=== PATIENT | male | born 1955 | race Caucasian/White ===

== ENCOUNTER 2016-09-19 10:46 | Day surgery (SDC) | payer BC ==
[2016-09-17 13:27] VITALS: BMI 31.1
[~2016-09-19 10:46] MED LIST: LACTATED RINGERS 1,000 ML IV SCH
[2016-09-19 11:13] VITALS: RESP 16; TEMP 96
[2016-09-19] MEDS ORDERED: LIDOCAINE 1% 20 ML VIAL (10MG/ML) FOR IV START INTRADERMA ONE (11:23)
[2016-09-19] MEDS ORDERED: PROPOFOL 10 MG/ML 20 ML VIAL IV ONE (11:36)
[2016-09-19] MEDS ORDERED: LIDOCAINE 1% INJ 10MG/ML (20 ML MDV) ONE (11:36)
[2016-09-19] MEDS ORDERED: MIDAZOLAM 2 MG/2 ML VIAL ONE (11:36)
--- NOTE | 2016-09-19 12:09 | P.PCN ---
Date of Procedure: 09/19/16 Procedure(s) Performed: Procedure: Total colonoscopy. Preoperative diagnosis: Screening for neoplasia. Postoperative diagnosis: Diverticulosis with no evidence of acute diverticulitis , strictures, polyps or cancer. Preparation: HalfLytely prep. Sedation: Was provided by anesthesia. Brief clinical history: The patient is a 60-year-old male who is referred for this evaluation for screening for neoplasia. His first exam was at age 48 and he believes he had a tiny polyp removed at that time. He has no abdominal complaints, bleeding or anemia. No family history of colon cancer. Procedure: With the patient on his left lateral decubitus position and after informed consent and adequate sedation, the perianal area was inspected and it did not show any fissures or fistulas. There were no masses felt on digital rectal examination. The Olympus CFQ 160L video colonoscope was then inserted in the rectum in the usual fashion and advanced to the cecum. The mucosa appeared healthy. No polyps or tumors were seen. There were multiple diverticular orifices noted scattered mostly on the left side with occasional ones around the hepatic flexure and on the right side with no evidence of acute diverticulitis or strictures. I retroflexed the endoscope in the rectum before the endoscope was withdrawn. The patient tolerated the procedure well. Plan: The patient was reassured. Discussed dietary measures. He will follow up with you as planned and I recommended repeat exam in 10 years.
[2016-09-19 12:47] VITALS: BP 133/88; PULSE 80
== END 2016-09-19 12:55 | disposition home or self-care (01) ==
LOC: ORWHC2ENDO 10:46
DX: Z12.11 Encounter for screening for malignant neoplasm of colon (principal); K57.30 Diverticulosis of large intestine without perforation or abscess without bleeding; Z86.010 Personal history of colon polyps; E78.5 Hyperlipidemia, unspecified; Z88.8 Allergy status to other drugs, medicaments and biological substances
CPT/HCPCS: J2250; J2001; J2704; G0105; 45378

== ENCOUNTER 2016-10-16 08:56 | Emergency (ER) | payer BC ==
[2016-10-16 09:04] VITALS: BP 146/108; PULSE 101; RESP 20; TEMP 98
[2016-10-16] MEDS ORDERED: DIPH,PERTUS(ACELL)TETVAC-LF 0.5 ML VIAL IM ONE (10:46)
--- NOTE | 2016-10-16 11:05 | ED ---
General Adult HPI - General Chief complaint: Wound/Laceration Stated complaint: LACERATION LEFT FINGER Time Seen by Provider: 10/16/16 10:45 Source: patient, RN notes reviewed Mode of arrival: ambulatory Limitations: no limitations - History of Present Illness Initial comments: Patient is a 60-year-old male who presents emergency room today with chief complaint of an injury to the left hand. He does admit that he was using a cutting wheel when it caught on something came out of his hands hit the back of the left hand causing laceration at the second metacarpal. Patient states unsure of his tetanus status. He denies any other complaints or symptoms. Patient denies any recent fever, chills, shortness of breath, chest pain, back pain, abdominal pain, nausea or vomiting, numbness or tingling, dysuria or hematuria, constipation or diarrhea, headaches or visual changes, or any other complaints. - Related Data Home Medications Medication Instructions Recorded Confirmed Cider Vinegar [Apple Cider Vinegar] 600 mg PO DAILY 09/17/16 09/19/16 Multivit-Min/FA/Lycopen/Lutein 1 each PO DAILY 09/17/16 09/19/16 [Centrum Silver Men Tablet] Previous Rx's Medication Instructions Recorded Cephalexin [Keflex] 500 mg PO Q12HR 10 Days 10/16/16 Allergies Allergy/AdvReac Type Severity Reaction Status Date / Time Kawyjrx-Dam-Fmy Reductase AdvReac MUSCLE PAIN Verified 10/16/16 09:04 Inhibitor Review of Systems ROS Statement: Those systems with pertinent positive or pertinent negative responses have been documented in the HPI. ROS Other: All systems not noted in ROS Statement are negative. Past Medical History Additional Past Medical History / Comment(s): HX OF COLON POLYP History of Any Multi-Drug Resistant Organisms: None Reported Additional Past Surgical History / Comment(s): COLONOSCOPY Additional Past Anesthesia/Blood Transfusion Reaction / Comment(s): NO GENERAL ANESTHESIA EVER Past Psychological History: No Psychological Hx Reported Smoking Status: Never smoker Past Alcohol Use History: None Reported Past Drug Use History: None Reported - Past Family History Brother(s) Family Medical History: Cancer Additional Family Medical History / Comment(s): COLON General Exam - General Exam Comments Initial Comments: General: The patient is awake and alert, in no distress, and does not appear acutely ill. Neck: The neck is supple, there is no tenderness or JVD. Cardiovascular: There is a regular rate and rhythm. No murmur, rub or gallop is appreciated. Respiratory: Lungs are clear to auscultation, respirations are non-labored, breath sounds are equal. No wheezes, stridor, rales, or rhonchi. Musculoskeletal: Recent sensation intact pulses equal bilaterally 2+. Cap refill less than 2 seconds. Patient does have decreased range of motion with extension at the second MCP joint. Neurological: A&O x 3. CN II-XII intact, There are no obvious motor or sensory deficits. Coordination appears grossly intact. Speech is normal. Skin: 1.5 cm linear laceration to the back of the left hand. Psychiatric: Normal mood and affect. Limitations: no limitations Course Vital Signs 10/16/16 09:02 Temperature 98.0 F Pulse Rate 101 H Respiratory 20 Rate Blood Pressure 146/108 O2 Sat by Pulse 99 Oximetry Procedures - Procedures Initial comment: The skin was anesthetized with 1% lidocaine. The laceration was then cleansed with Betadine and irrigated with normal saline. The wound was inspected, and there is evidence for a extensor tendon laceration to the second MCP area.. No foreign body was noted in the wound. A total of 4 skin sutures were placed utilizing 5-0 nylon. Medical Decision Making - Medical Decision Making Case was discussed with orthopedic physician medical assistant prn Clarice who states that Dr. Nick will see the patient tomorrow morning. Patient has been sewed up over top after being irrigated. Patient will be given antibiotic advised to follow-up with orthopedic tomorrow. Disposition Clinical Impression: Tendon laceration Disposition: HOME SELF-CARE Condition: Good Instructions: Laceration (ED) Additional Instructions: Please follow-up with orthopedics tomorrow. Please use antibiotic as prescribed. Please return to emergency room for any other concerns. Prescriptions: Cephalexin [Keflex] 500 mg PO Q12HR 10 Days Referrals: Wilfredo Singletary III, MD [Primary Care Provider] - 1-2 days Time of Disposition: 11:58
--- NOTE | 2016-10-16 11:13 | XR ---
EXAMINATION TYPE: XR hand complete LT DATE OF EXAM: 10/16/2016 11:07 AM COMPARISON: NONE HISTORY: Pain and laceration second digit TECHNIQUE: Three views are submitted. FINDINGS: The osseous structures are intact. The joint spaces are preserved and there is no acute fracture or dislocation. Metallic ring overlies fourth digit obscures portion of the proximal phalanx. Chronic d eformity first metacarpal. IMPRESSION: 1. No definite acute fracture or dislocation if symptoms persist, follow-up study in 7 to 10 days wo uld be suggested
--- NOTE | 2016-11-14 00:42 | CDI ---
Documentation Clarification OP Dear Vaughn SEALS MD, Please add addendum for Tendon laceration repair.Only sutures mentioned. Thank you, Bessie martínez. Supervisor [employer]. JADIEL
== END 2016-10-16 12:24 | disposition home or self-care (01) ==
LOC: EC 08:56
DX: S66.922A Laceration of unspecified muscle, fascia and tendon at wrist and hand level, left hand, initial encounter (principal); Z23 Encounter for immunization; Z88.8 Allergy status to other drugs, medicaments and biological substances; Z79.899 Other long term (current) drug therapy; W23.0XXA Caught, crushed, jammed, or pinched between moving objects, initial encounter
CPT/HCPCS: 12001; 90471; 90715; 99283

== ENCOUNTER → 2023-08-16 | Outpatient (CLI) | payer MEDICARE ==
[2023-08-16 13:01] LABS: Basophils # (A) 0.06 X 10*3/uL (0.00-0.10); Basophils % (A) 0.8 %; Eosinophils # (A) 0.38 X 10*3/uL (0.04-0.35); Eosinophils % (A) 5.3 %; HCT 46.1 % (39.6-50.0); HGB 15.5 g/dL (13.0-17.0); Lymphocytes # (A) 1.98 X 10*3/uL (0.90-5.00); Lymphocytes % (A) 27.7 %; MCH 30.6 pg (27.0-32.0); MCHC 33.6 g/dL (32.0-37.0); MCV 91.1 FL (80.0-97.0); Mean Platelet Volume 10.8 FL (9.5-12.2); Monocytes # (A) 0.54 X 10*3/uL (0.20-1.00); Monocytes % (A) 7.5 %; NRBC Per 100 WBC 0 X 10*3/uL (0.00-0.01); Neutrophils # (A) 4.18 X 10*3/uL (1.80-7.70); Neutrophils % (A) 58.4 %; Platelet Count 197 X 10*3/uL (140-440); RBC 5.06 X 10*6/uL (4.40-5.60); RDW 12.7 % (11.5-14.5); WBC 7.16 X 10*3/uL (4.50-10.00)
[2023-08-16 13:23] LABS: BUN/Creat Ratio 17.73 Ratio (12.00-20.00); Blood Urea Nitrogen 19.5 mg/dL (9.0-27.0); Calcium 9.5 mg/dL (8.7-10.3); Carbon Dioxide 26.9 mmol/L (21.6-31.8); Chloride 103 mmol/L (96-109); Glucose 146 mg/dL (70-110); Potassium 4.9 mmol/L (3.5-5.5); Sodium 140 mmol/L (135-145)
[2023-08-16 15:05] LABS: INR 1.11 sec (0.93-1.11); Prothrombin Time 11.9 sec (9.9-11.9)
== END | disposition home or self-care (01) ==
LOC: LABPAT 08:43
PROVIDERS: ATTEND Orthopaedic Surgery
DX: Z01.812 Encounter for preprocedural laboratory examination (principal); Z22.322 Carrier or suspected carrier of Methicillin resistant Staphylococcus aureus; M16.12 Unilateral primary osteoarthritis, left hip; I44.0 Atrioventricular block, first degree; I45.10 Unspecified right bundle-branch block
CPT/HCPCS: 80048; 85025; 85610; 86850; 86900; 86901; 87070; 93005

== ENCOUNTER 2023-08-26 08:16 | Day surgery (SDC) | payer BC, MEDICARE ==
[2023-08-21 12:07] VITALS: BMI 29.9
--- NOTE | 2023-08-25 08:40 | P.HPOR ---
History of Present Illness H&P Date: 08/25/23 Chief Complaint: Left hip pain The patient is a 67-year-old retired gentleman who presents with progressive left hip pain for the past several years. He notes groin and thigh pain worse with weightbearing activities. It limits him significantly. He has been limping. He tried medications without much relief. Review of Systems As per HPI Past Medical History Past Medical History: Hyperlipidemia, Hypertension Additional Past Medical History / Comment(s): HX OF COLON POLYP History of Any Multi-Drug Resistant Organisms: None Reported Past Surgical History: Orthopedic Surgery Additional Past Surgical History / Comment(s): COLONOSCOPY, L hand surgery. Past Anesthesia/Blood Transfusion Reactions: No Reported Reaction Additional Past Anesthesia/Blood Transfusion Reaction / Comment(s): NO GENERAL ANESTHESIA EVER Smoking Status: Never smoker - Past Family History Brother(s) Family Medical History: Cancer Additional Family Medical History / Comment(s): COLON Medications and Allergies Home Medications Medication Instructions Recorded Confirmed Type Cider Vinegar [Apple Cider Vinegar] 600 mg PO DAILY 09/17/16 08/21/23 History Mv-Min/Folic/K1/Lycopen/Lutein 1 each PO DAILY 09/17/16 08/21/23 History [Centrum Silver Men Tablet] Magnesium 400 mg PO DAILY 08/21/23 08/21/23 History Olmesartan [Benicar] 40 mg PO DAILY 08/21/23 08/21/23 History amLODIPine BESYLATE 10 mg PO DAILY 08/21/23 08/21/23 History Allergies Allergy/AdvReac Type Severity Reaction Status Date / Time Gsnajwp-ZKM-MqG Reductase AdvReac MUSCLE PAIN Verified 08/21/23 11:07 Inhibitor [Gqlgoqm-Tno-Xkf Reductase Inhibitor] Physical Examination - Hip left Gait: antalgic Tenderness with palpation: anterior Pain with motion: internal rotation and hip flexion ROM: flexion: 80 degrees ROM: internal rotation: 10 degrees (With pain) ROM: external rotation: 60 degrees Strength: extension: 5/5 Strength: flexion: 5/5 Strength: abduction: 5/5 Tests: impingement tests: positive Results The patient is a well-developed well-nourished male approximately 5 foot 5, 195 pounds of endomorphic habitus. HEENT exam is nonfocal, neck is supple. He has limited painful passive motion of the left hip. Clinically he is 1 cm short on the left lower extremity compared to the right. His distal neurovascular appears intact in the left lower extremity. - Diagnostic results Hip x-ray: image reviewed (2 views of the left hip obtained in the office show severe osteoarthrosis with eylo-im-lmrr changes and subchondral sclerosis.) Assessment and Plan Assessment: Left hip severe osteoarthrosis Plan: I talked to the patient at length regarding his condition along with treatment options. At this point quite limited because of pain related to his left hip osteoarthrosis despite previous conservative measures. After a thorough discussion he opts to proceed with surgery. We'll proceed with a left total hip arthroplasty utilizing an anterior approach. Risks and benefits were discussed at length in layman's terms. We will institute DVT prophylaxis postoperatively.
[~2023-08-26 08:16] MED LIST changes: +HYDROmorphone 0.5 MG/0.5 ML SYRINGE IVP PRN; -LACTATED RINGERS 1,000 ML IV SCH; +LIDOCAINE 1% (10MG/ML) FOR IV START INTRADERMA PRN; +TRANEXAMIC 1,000 MG/100ML-NACL 1,000 MG in SALINE 1 100ML.BAG IVPB PRN
[2023-08-26] MEDS: LACTATED RINGERS 1,000 ML IV SCH (08:55)
[2023-08-26] MEDS: DEXAMETHASONE SOD PHOSPHATE 4 MG/ML 1 ML VIAL IVP ONE (09:02)
[2023-08-26] MEDS: ONDANSETRON 4 MG/2 ML VIAL IVP ONE (09:02)
[2023-08-26] MEDS: ACETAMINOPHEN TAB 500 MG TAB PO PRN (09:02)
[2023-08-26] MEDS: MELOXICAM 7.5 MG TAB PO PRN (09:02)
[2023-08-26] MEDS: MIDAZOLAM 2 MG/2 ML VIAL IVP ONE (09:24)
--- NOTE | 2023-08-26 09:36 | P.ANPRN ---
Procedure Note - Anesthesia - Nerve Block Performed Left Drew Single Time Out Performed: Yes Date of Procedure: 08/26/23 Procedure Start Time: Procedure Stop Time: Location of Patient: PreOp Indication: Acute Post-Operative Pain, Analgesia, Requested by Surgeon Sedation Type: Sedate with meaningful contact maintained Preparation: Sterile Prep Position: Supine Needle Types: Pajunk Needle Gauge: 21 Ultrasound used to visualize needle placement: Yes Ultrasound used to observe medication spread: Yes Injectate: 0.5% Ropivacaine (see comment for volume) (Ropiv 20ml+decadron 4mg) Blood Aspirated: No Pain Paresthesia on Injection Noted: No Resistance on Injection: Normal Image Stored and Saved: Yes Events: Uneventful and Well Tolerated
[2023-08-26] MEDS: ceFAZolin 1,000 MG in SODIUM CHLORIDE 0.9% 1,000 ML IRRIGATION ONE (10:25)
[2023-08-26] MEDS ORDERED: HYDROcodone/APAP 5-325MG 1 EACH TAB PO PRN (12:30)
[2023-08-26] MEDS ORDERED: HYDROmorphone 0.5 MG/0.5 ML SYRINGE IVP PRN ×2 (12:30)
[2023-08-26] MEDS ORDERED: MAGNESIUM HYDROXIDE 2,400 MG/30 ML CUP PO PRN (12:30)
[2023-08-26] MEDS ORDERED: hydrOXYzine pamoate 25 MG CAP PO PRN (12:30)
[2023-08-26] MEDS ORDERED: NALOXONE 0.4 MG/ML 1 ML VIAL IV PRN (12:30)
--- NOTE | 2023-08-26 12:30 | XR ---
Fluoroscopy INDICATION: Pain FINDINGS: Fluoroscopy time: 31 seconds. Total dose area product (DAP) in uGy*m?, mGy*cm? (or similar): 1.0 x 2 Images obtained: 8. IMPRESSION: 1. Documentation of fluoroscopy.
--- NOTE | 2023-08-26 12:47 | P.OP ---
Date of Procedure: 08/26/23 Preoperative Diagnosis: Left hip severe osteoarthrosis Postoperative Diagnosis: Same Procedure(s) Performed: Left total hip arthroplastypress-fitanterior approach Implants: Depuy Corail size 11/125/collared press-fit femoral stem, 54 mm Dows acetabular shell with neutral polyethylene liner, 36 mm +1.5 cortical chrome femoral head. I also utilized a 6.5 mm x 25 mm cancellus screw. Anesthesia: regional, spinal Surgeon: Junaid Coelho Bowl Topper #1: Narendra Jamison Estimated Blood Loss (ml): 200 Pathology: none sent Condition: stable Disposition: PACU Indications for Procedure: The patient is a 67-year-old male presents with progressive left hip pain secondary to osteoarthrosis despite conservative measures. A discussion of the risks and benefits of operative intervention versus continued conservative measures was made with patient. He opted to proceed with surgery. Operative risks to include infection, neurovascular injury, development of blood clots, fracture, leg length discrepancy, possible component loosening/failure and possible need for subsequent procedures was discussed. Informed consent was obtained. Operative Findings: As below Description of Procedure: The patient was brought to the operating room, and after induction of spinal anesthesia was placed supine on the Lara table. Positioning was checked with fluoroscopy. The left hip was then prepped and draped in a normal fashion. A 12 cm incision was then made starting 2 fingerbreadths distal and 3 finger breaths posterior to the ASIS in line with the proximal femur. The skin was incised sharply. Subcutaneous tissues were divided sharply. Electrocautery was used for hemostasis. The fascia was split in line with skin incision. The interval between the sartorius and tensor fascia rosalio was then bluntly developed. The posterior fascia was opened with electrocautery. The lateral circumflex vessels were identified and cauterized prior to sectioning. A retractor was placed along the superior femoral neck as well as the anterior acetabular rim. A wide capsulotomy was performed. The neck cut was then made at a 45 angle to the shaft approximately 1 1/2 cm above the level of the lesser trochanter. The head was extracted. Attention was then paid towards preparing the acetabular. Anterior and posterior retractors were placed. The remaining capsular labral tissue sharply debrided clearly defining the acetabular margins. I began reaming with a 49 mm reamer taking care to initially medialize then reaming at 45 of abduction and 20 of anteversion. Sequential reaming is performed up to 53 mm. A trial 54 mm acetabular shell was inserted in the same orientation and was fully seated. There was good rim fit and stability. Positioning was checked with fluoroscopy. The final 54 mm acetabular shell was inserted again at 45 of abduction and 20 of anteversion. This was fully seated. There was good rim fit and stability. Again fluoroscopy was used to check the adequacy of placement. A neutral polyethylene liner was gently impacted. Care was taken to avoid any soft tissue interposition. Pulsatile lavage was utilized. Attention was then paid towards preparing the proximal femur. The central region was cleared of soft tissue. A canal finder was used to find the femoral canal. Sequential broaching was performed up to size 11 taking care to lateralize proximally. A calcar mill was used to fashion the medial calcar. There was good rotational stability. A 125 neck along with a 36 mm +1.5 head was placed. The hip was gently reduced. Fluoroscopy was used to check the adequacy of positioning along with leg lengths. I felt both were good. The hip was gently dislocated. The trial components were removed. The final size 11 collared 125 press-fit femoral stem was inserted parallel to the posterior cortex. This was fully seated and there was good rotational stability. A 36 mm +1.5 head was placed. This was gently impacted. The hip was then gently reduced. Final fluoroscopic view showed adequate placement implant along with hoahaoism of leg length. Stability was checked with 80 of external rotation and 60 of extension of the right hip. The wound was irrigated with sterile lavage. The fascia was closed with running 0 Vicryl suture. There was minimal drainage therefore a deep drain was not placed. The second dose of IV TXA was given. The subcutaneous tissues were reapproximated interrupted 2-0 Vicryl sutures. The skin was reapproximated with 3-0 subcuticular strata fix suture. Skin tape and adhesive was applied. A sterile dressing was applied. The patient was then awoken from sedation and transferred to recovery room in good condition. Blood loss was estimated at 200 mL. No complications were incurred. Sponge and needle counts were correct at the end of the case. Narendra ROSE assisted during the major components is case to include exposure, bone resection, implantation, and closure.
--- NOTE | 2023-08-26 13:15 | XR ---
EXAMINATION TYPE: XR Hip Limited LT DATE OF EXAM: 08/26/2023 COMPARISON: None HISTORY: Left hip replacement TECHNIQUE: AP left hip FINDINGS: There is placement of a left femoral prosthesis with acetabular component. No acute fractur es are evident. Postsurgical soft tissue changes are evident. IMPRESSION: 1. No acute fracture post left hip replacement
--- NOTE | 2023-08-26 13:54 | FL ---
EXAMINATION TYPE: FL guidance operating room Intraoperative/procedural fluoroscopic services were pro vided. Total fluoroscopy time is 31 seconds with a total of 7 submitted images to PACS. Please see th e operative/procedural note for further details. DAP: 1.9052 Gycm2
[2023-08-26] MEDS: LACTATED RINGERS 1,000 ML IV ONE (14:52)
[2023-08-26] MEDS: HYDROcodone/APAP 7.5-325MG 1 EACH TAB PO PRN (16:17)
[2023-08-26] MEDS: droPERidol 5 MG/2 ML VIAL IVP ONE (17:25)
[2023-08-26] MEDS: SENNOSIDES-DOCUSATE SODIUM 1 EACH TAB PO SCH (20:53)
[2023-08-27 03:44] VITALS: RESP 17
[2023-08-27] MEDS: VIT A,C & E-LUTEIN-MINERALS 1 EACH TAB PO SCH (08:03)
[2023-08-27] MEDS: RIVAROXABAN 10 MG TAB PO SCH (08:03)
[2023-08-27] MEDS: MAGNESIUM OXIDE 400 MG TAB PO SCH (08:03)
[2023-08-27 08:26] VITALS: BP 122/69; PULSE 66; TEMP 97.9
--- NOTE | 2023-08-27 08:53 | P.DS ---
Providers Date of admission: 08/26/2023 Expected date of discharge: 08/27/23 Attending physician: Junaid Coelho Consults: 08/26/23 12:30 Consult Physician Routine Consulting Provider: Darlin Griggs Consult Reason/Comments: medical management s/p direct anterior right total hip arthroplasty Do you want consulting provider notified?: Yes Primary care physician: [facility] Course: Date of admission: 08/26/2023 Date of discharge: 08/27/2023 Admission diagnosis: Left hip osteoarthritis Discharge diagnosis: Same Attending physician: Dr. Coelho Surgical procedures: Left total hip arthroplasty Brief history: Patient is a 67-year-old male with a history of progressive primary left hip osteoarthritis. At this point patient has failed conservative treatment measures and has opted to proceed with a elective anterior left total hip arthroplasty. Hospital course: Details of patient's surgery can be found in operative report. Patient tolerated the procedure well and was subsequently transported to orthopedic floor. Patient's orthopeidc and medical care was provided daily. Patient had daily laboratory tests performed for evaluation of overall blood counts. Patient had daily physical therapy to include strengthening range of motion as well as education with walker ambulation. Patient was treated with Xarelto for their postoperative DVT prophylaxis during their inpatient stay. Patient was noted to have a relatively uneventful postoperative course. Patient reported satisfactory pain control with oral pain medications by postoperative day 1. Patient showed satisfactory progress with physical therapy. Patient moved steadily through the program and had no difficulty meeting the goals by postoperative day 1. Given patient's otherwise satisfactory course and having met physical therapy goals, plan is to discharge patient home with health services on postoperative day 1. Discharge condition/disposition: Patient will be discharged home with health services in stable condition. Discharge medications: Instructions are given on resumption of patient's normal daily medications per primary care recommendation, in addition patient will be prescribed [place]; senna; Eliquis 2.5 mg twice a day 2 weeks. Discharge instructions: 1. Wound care and infection precautions, keep incision dry and covered while showering, no lotions, creams, moisturizers. No soaking, tubs, pools, hottubs. Do not scrub over the incision. 2. Weight-bear as tolerated with walker / cane until follow-up. 3. Ice and elevate when necessary. Do not exceed 20 minutes per hour with ice pack. 4. Utilize compression sleeve until seen at first follow up appointment. 5. Visiting nursing care. 6. Home physical therapy including home CPM. 7. Pain meds and anticoagulants per prescription. 8. Pain medication has potential to cause constipation. Increase oral fluid and fiber intake. Contact primary care provider if you have not had a bowel movement within 48 hours after discharge 9. No anti-inflammatory medication until discussed at first post operative visit, this including Motrin, Aleve, Mobic, Diclofenac. 10. Follow up in office at 2 weeks postop with Marcelino Morocho PA-C / Narendra Jamison PA-C 11. Follow up with your primary care doctor 7-10 days after discharge. 12. Contact [facility] with any questions, . Assessment: Left hip osteoarthritis Procedures: Left total hip arthroplasty Patient Condition at Discharge: Good Plan - Discharge Summary Discharge Rx Participant: Yes New Discharge Prescriptions: No Action Mv-Min/Folic/K1/Lycopen/Lutein [Centrum Silver Men Tablet] 1 each PO DAILY Cider Vinegar [Apple Cider Vinegar] 600 mg PO DAILY amLODIPine BESYLATE 10 mg PO DAILY Olmesartan [Benicar] 40 mg PO DAILY Magnesium 400 mg PO DAILY Discharge Medication List Cider Vinegar [Apple Cider Vinegar] 600 mg PO DAILY 09/17/16 [History] Mv-Min/Folic/K1/Lycopen/Lutein [Centrum Silver Men Tablet] 1 each PO DAILY 09/17/16 [History] Magnesium 400 mg PO DAILY 08/21/23 [History] Olmesartan [Benicar] 40 mg PO DAILY 08/21/23 [History] amLODIPine BESYLATE 10 mg PO DAILY 08/21/23 [History] Follow up Appointment(s)/Referral(s): Narendra Jamison, SUE [PHYSICIAN X RAY TECHNICIAN] - 2 Weeks Patient Instructions/Handouts: *Surgery [facility] - (Anesthesia) Discharge Instructions Outpatient Surgery, Anterior Hip Replacement (DC), Anterior Hip Replacement (GEN) Activity/Diet/Wound Care/Special Instructions: Orthopedic Discharge Instructions: 1. Wound care and infection precautions, keep incision dry and covered while showering, no lotions, creams, moisturizers. No soaking, pools, hot tubs. Do not scrub over incision. 2. Weight-bear as tolerated with walker / cane until follow-up. 3. Ice and elevate when necessary. Do not exceed 20 minutes per hour with ice pack. 4. Utilize compression sleeve until seen at first follow up appointment. 5. Pain meds and anticoagulants per prescription. 6. Pain medication has potential to cause constipation. Increase oral fluid and fiber intake. Contact primary care provider if you have not had a bowel movement within 48 hours after discharge. 7. No anti-inflammatory medication until discussed at first post operative visit, this including Motrin, Aleve, Mobic, Diclofenac. 8. Follow up in office at 2 weeks postop with Marcelino Morocho PA-C / Narendra Jamison PA-C 9. Follow up with your primary care doctor 7-10 days after discharge. 10. Contact [facility] with any questions, . Keep incision clean, dry, intact. While showering, cover fusion tape with Saran wrap. Keep fusion tape on until follow-up appointment office at 2 weeks.
[2023-08-27 09:16] LABS: Basophils % (A) 0 %; Eosinophils % (A) 0 %; HCT 38.3 % (39.0-53.0); HGB 12.7 gm/dL (13.0-17.5); Lymphocytes # (A) 1.4 k/uL (1.0-4.8); Lymphocytes % (A) 9 %; MCH 31.1 pg (25.0-35.0); MCHC 33.2 g/dL (31.0-37.0); MCV 93.7 fL (80.0-100.0); Mean Platelet Volume 8.7; Monocytes # (A) 0.9 k/uL (0-1.0); Monocytes % (A) 6 %; Neutrophils # (A) 12.4 k/uL (1.3-7.7); Neutrophils % (A) 84 %; Platelet Count 175 k/uL (150-450); RBC 4.08 m/uL (4.30-5.90); RDW 13.2 % (11.5-15.5); WBC 14.7 k/uL (3.8-10.6)
--- NOTE | 2023-08-27 11:57 | P.PN ---
Subjective Progress Note Date: 08/27/23 Principal diagnosis: Left hip osteoarthritis Patient was seen at bedside this morning lying semirecumbent position was dressing present over left anterior hip. Patient says he is looking forward to work with therapy later this morning. Patient says he has urinated several times since surgery yesterday. Patient says the pain is controlled with medication. Patient says she does have a walker home. Patient denies chest pain, fever, shortness of breath, nausea, vomiting, change in vision, loss of bowel/bladder control. Objective - Vital Signs Vital signs: Vital Signs Temp 97.9 F 08/27/23 08:00 Pulse 66 08/27/23 08:00 Resp 17 08/27/23 08:00 BP 122/69 08/27/23 08:00 Pulse Ox 93 L 08/27/23 08:00 FiO2 Intake & Output 08/26/23 08/27/23 08/27/23 18:59 06:59 18:59 Intake Total 1051 Output Total 200 300 Balance 851 -300 Weight 86.6 kg Intake: IV 1051 Output: Urine 300 Estimated Blood Loss 200 Other: # Voids 1 - Exam Left hip: Incision is clean, dry, and intact. The exofin fusion tape is in good condition. There is minimal soft tissue swelling and ecchymosis surrounding the medial and lateral aspects of the incision. Calf is soft, no tenderness with palpation. Plantar flexion, dorsiflexion, EHL, FHL are intact. Sensory exam to light touch throughout the extremity is intact, dorsal pedis pulses 2+. - Labs CBC & Chem 7: 08/27/23 08:32 Assessment and Plan Assessment: 1. Left hip osteoarthritis - Postoperative day 1 status post left total hip arthroplasty Plan: 1. Left hip osteoarthritis- direct anterior left total hip arthroplasty pe rformed yesterday, 08/26/2023. Patient stable at bedside this morning. Pending PT/OT eval, discharge home today with health services. Prescription for walker signed 2. Appreciate medical management 3. Pain management - [place]; Dilaudid only as necessary 4. DVT prophylaxis - Xarelto in hospital. Going home with eloquence 2.5 mg twice a day 2 weeks 5. GI prophylaxis - senna 6. PT/OT - weightbearing as our with walker 7. Encourage incentive spirometer use 8. Discharge planning - home with health services today Time with Patient: Less than 30
--- NOTE | 2023-08-27 12:09 | P.CONS ---
History of Present Illness - Reason for Consult Consult date: 08/27/23 Medical management - History of Present Illness History of present illness; patient is a 67-year-old gentleman with past medical history significant for osteoarthritis, hypertension who presented to the hospital for elective left hip arthroplasty. Patient has been dealing with left hip pain for the last few years, left hip pain has been interfering with his daily activities. Hip pain worsens on ambulation. Patient was being seen outpatient by orthopedic surgery, all conservative measures had failed and patient decided to proceed with left hip arthroplasty she was scheduled for 08/25. Postoperatively internal medicine team was consulted REVIEW OF SYSTEMS: CONSTITUTIONAL: No fever, no malaise, no fatigue. HEENT: No recent visual problems or hearing problems. Denied any sore throat. CARDIOVASCULAR: No chest pain, orthopnea, PND, no palpitations, no syncope. PULMONARY: No shortness of breath, no cough, no hemoptysis. GASTROINTESTINAL: No diarrhea, no nausea, no vomiting, no abdominal pain. NEUROLOGICAL: No headaches, no weakness, no numbness. HEMATOLOGICAL: Denies any bleeding or petechiae. GENITOURINARY: Denies any burning micturition, frequency, or urgency. MUSCULOSKELETAL/RHEUMATOLOGICAL: Left hip pain ENDOCRINE: Denies any polyuria or polydipsia. The rest of the 14-point review of systems is negative. PHYSICAL EXAMINATION: GENERAL: The patient is alert and oriented x3, not in any acute distress. Well developed, well nourished. HEENT: Pupils are round and equally reacting to light. EOMI. No scleral icterus. No conjunctival pallor. Normocephalic, atraumatic. No pharyngeal erythema. No thyromegaly. CARDIOVASCULAR: S1 and S2 present. No murmurs, rubs, or gallops. PULMONARY: Chest is clear to auscultation, no wheezing or crackles. ABDOMEN: Soft, nontender, nondistended, normoactive bowel sounds. No palpable organomegaly. MUSCULOSKELETAL: Left hip surgical incision seen EXTREMITIES: No cyanosis, clubbing, or pedal edema. NEUROLOGICAL: Gross neurological examination did not reveal any focal deficits. SKIN: No rashes. Assessment and plan Left hip osteoarthritis status post left knee arthroplasty Hypertension Monitor vital signs Monitor CBC Monitor CMP Resume home meds Continue pain management per orthopedics Continue DVT prophylaxis per orthopedics Resume home meds PT and OT consulted Labs and medication were reviewed.. Continue same treatment. Continue with symptomatic treatment. Resume home medication. Monitor labs and vitals. DVT and GI prophylaxis. Further recommendations as per clinical course of the patient Dictation was produced using [employer] dictation software. please excuse any grammatical, word or spelling errors. Past Medical History Past Medical History: Hyperlipidemia, Hypertension Additional Past Medical History / Comment(s): HX OF COLON POLYP History of Any Multi-Drug Resistant Organisms: None Reported Past Surgical History: Orthopedic Surgery Additional Past Surgical History / Comment(s): COLONOSCOPY, L hand surgery. Past Anesthesia/Blood Transfusion Reactions: No Reported Reaction Additional Past Anesthesia/Blood Transfusion Reaction / Comm: NO GENERAL ANESTHESIA EVER Past Psychological History: No Psychological Hx Reported Smoking Status: Never smoker Past Alcohol Use History: None Reported Past Drug Use History: None Reported - Past Family History Brother(s) Family Medical History: Cancer Additional Family Medical History / Comment(s): COLON Medications and Allergies Home Medications Medication Instructions Recorded Confirmed Type Cider Vinegar [Apple Cider Vinegar] 600 mg PO DAILY 09/17/16 08/26/23 History Mv-Min/Folic/K1/Lycopen/Lutein 1 each PO DAILY 09/17/16 08/26/23 History [Centrum Silver Men Tablet] Magnesium 400 mg PO DAILY 08/21/23 08/26/23 History Olmesartan [Benicar] 40 mg PO DAILY 08/21/23 08/26/23 History amLODIPine BESYLATE 10 mg PO DAILY 08/21/23 08/26/23 History Apixaban [Eliquis] 2.5 mg PO BID #60 tab 08/27/23 Rx HYDROcodone/APAP 7.5-325MG [[place] 1 - 2 tab PO Q6HR PRN #32 tab 08/27/23 Rx 7.5-325] Sennosides/Docusate Sodium [Senna 1 each PO DAILY #20 capsule 08/27/23 Rx Plus 8.6-50 mg Softgel] Allergies Allergy/AdvReac Type Severity Reaction Status Date / Time Anldtwj-NVS-EjG Reductase AdvReac MUSCLE PAIN Verified 08/26/23 08:34 Inhibitor [Ayqrpfc-Tur-Tlh Reductase Inhibitor] Physical Exam Vitals: Vital Signs Temp Pulse Pulse Pulse Resp BP Pulse Ox 08/27/23 08:00 97.9 F 66 17 122/69 93 L 08/27/23 00:54 98.5 F 68 17 110/66 94 L 08/26/23 19:29 98 F 99 20 107/69 93 L 08/26/23 15:22 98.5 F 93 18 117/73 93 L 08/26/23 14:45 94 18 136/62 98 08/26/23 14:23 93 14 114/58 97 08/26/23 14:08 90 14 108/70 98 08/26/23 13:53 82 14 108/69 98 08/26/23 13:38 84 16 107/63 98 08/26/23 13:23 82 16 103/69 96 08/26/23 13:08 80 12 97/65 96 08/26/23 12:53 79 12 105/60 98 08/26/23 12:38 98.4 F 93 12 92/55 94 L Intake and Output 08/26/23 08/27/23 08/27/23 22:59 06:59 14:59 Output Total 300 Balance -300 Output: Urine 300 Other: # Voids 1 Results CBC & Chem 7: 08/27/23 08:32 Labs: Abnormal Lab Results - Last 24 Hours (Table) 08/27/23 Range/Units 08:32 WBC 14.7 H (3.8-10.6) k/uL RBC 4.08 L (4.30-5.90) m/uL Hgb 12.7 L (13.0-17.5) gm/dL Hct 38.3 L (39.0-53.0) % Neutrophils # 12.4 H (1.3-7.7) k/uL
== END 2023-08-27 12:00 | disposition home health service (06) ==
LOC: OR 08:16 → 4SSUR 12:33 → OR 08-27 12:00
PROVIDERS: ATTEND Orthopaedic Surgery
DX: M16.12 Unilateral primary osteoarthritis, left hip (principal); E78.5 Hyperlipidemia, unspecified; I10 Essential (primary) hypertension; Z79.01 Long term (current) use of anticoagulants; Z88.8 Allergy status to other drugs, medicaments and biological substances; Z79.899 Other long term (current) drug therapy
CPT/HCPCS: 97161; 97535; 97166; 64447; 85025; 73501; 27130; C1776; J2250; J1100; J0690 ×3; J2405

== ENCOUNTER 2023-09-01 18:04 | Emergency (ER) | payer MEDICARE ==
[2023-09-01 18:28] VITALS: RESP 16; TEMP 98.3
--- NOTE | 2023-09-01 19:08 | ED ---
General Adult HPI - General Chief complaint: Extremity Problem,Nontraumatic Stated complaint: L Leg Swelling Time Seen by Provider: 09/01/23 18:17 Source: patient, RN notes reviewed, old records reviewed Mode of arrival: ambulatory Limitations: no limitations - History of Present Illness Initial comments: 67-year-old male 5 days status post left hip replacement presenting with swelling in the left leg. Patient is on Eliquis. No chest pain or dyspnea. No fever. No drainage from his incision - Related Data Home Medications Medication Instructions Recorded Confirmed Cider Vinegar [Apple Cider Vinegar] 600 mg PO DAILY 09/17/16 08/26/23 Mv-Min/Folic/K1/Lycopen/Lutein 1 each PO DAILY 09/17/16 08/26/23 [Centrum Silver Men Tablet] Magnesium 400 mg PO DAILY 08/21/23 08/26/23 Olmesartan [Benicar] 40 mg PO DAILY 08/21/23 08/26/23 amLODIPine BESYLATE 10 mg PO DAILY 08/21/23 08/26/23 Previous Rx's Medication Instructions Recorded Apixaban [Eliquis] 2.5 mg PO BID #60 tab 08/27/23 HYDROcodone/APAP 7.5-325MG [[place] 1 - 2 each PO Q6HR PRN #42 tab 08/27/23 7.5] Sennosides/Docusate Sodium [Senna 1 each PO DAILY #20 capsule 08/27/23 Plus 8.6-50 mg Softgel] Allergies Allergy/AdvReac Type Severity Reaction Status Date / Time Bpulnqp-LKN-KrK Reductase AdvReac MUSCLE PAIN Verified 09/01/23 18:10 Inhibitor [Yhfpfuw-Cpx-Pfa Reductase Inhibitor] Review of Systems ROS Statement: Those systems with pertinent positive or pertinent negative responses have been documented in the HPI. ROS Other: All systems not noted in ROS Statement are negative. Past Medical History Additional Past Medical History / Comment(s): HX OF COLON POLYP History of Any Multi-Drug Resistant Organisms: None Reported Additional Past Surgical History / Comment(s): COLONOSCOPY Additional Past Anesthesia/Blood Transfusion Reaction / Comment(s): NO GENERAL ANESTHESIA EVER Past Psychological History: No Psychological Hx Reported Past Alcohol Use History: None Reported Past Drug Use History: None Reported - Past Family History Brother(s) Family Medical History: Cancer Additional Family Medical History / Comment(s): COLON General Exam Limitations: no limitations General appearance: alert, in no apparent distress Head exam: Present: atraumatic, normocephalic Eye exam: Present: normal appearance, PERRL ENT exam: Present: normal exam Neck exam: Present: normal inspection. Absent: tenderness, meningismus Respiratory exam: Present: normal lung sounds bilaterally. Absent: respiratory distress, wheezes Cardiovascular Exam: Present: regular rate, normal rhythm GI/Abdominal exam: Present: soft. Absent: distended, tenderness Extremities exam: Present: other (Left leg swelling. Incision is clean and dry, no erythema or purulence. Distal pulses intact.) Neurological exam: Present: alert, oriented X3 Psychiatric exam: Present: normal affect, normal mood Course Vital Signs 09/01/23 18:06 Temperature 98.3 F Pulse Rate 72 Respiratory 16 Rate Blood Pressure 153/70 O2 Sat by Pulse 97 Oximetry Medical Decision Making - Medical Decision Making Was pt. sent in by a medical professional or institution (, PA, ORE CRUSHING DUST COLLECTOR, urgent care, hospital, or snf...) When possible be specific @ -No Did you speak to anyone other than the patient for history (EMS, parent, family, police, friend...)? What history was obtained from this source @ -No Did you review nursing and triage notes (agree or disagree)? Why? @ -I reviewed and agree with nursing and triage notes Were old charts reviewed (outside hosp., previous admission, EMS record, old EKG, old radiological studies, urgent care reports/EKG's, snf records)? Report findings @ -No old charts were reviewed Differential Diagnosis (chest pain, altered mental status, abdominal pain women, abdominal pain men, vaginal bleeding, weakness, fever, dyspnea, syncope, headache, dizziness, GI bleed, back pain, seizure, CVA, palpatations, mental health, musculoskeletal)? @ -DVT, postoperative swelling. EKG interpreted by me (3pts min.). @ -As above X-rays interpreted by me (1pt min.). @ -None done CT interpreted by me (1pt min.). @ -None done U/S interpreted by me (1pt. min.). @ -Ultrasound of the left leg negative for DVT What testing was considered but not performed or refused? (CT, X-rays, U/S, labs)? Why? @ -None What meds were considered but not given or refused? Why? @ -None Did you discuss the management of the patient with other professionals (professionals i.e. , PA, ORE CRUSHING DUST COLLECTOR, lab, RT, psych nurse, social studies department chair, prior authorization technician, teacher, commissioned fire officer, director of casework)? Give summary @ -No Was smoking cessation discussed for >3mins.? @ -No Was critical care preformed (if so, how long)? @ -No Were there social determinants of health that impacted care today? How? (Homelessness, low income, unemployed, alcoholism, drug addiction, transportation, low edu. Level, literacy, decrease access to med. care, snf, rehab)? @ -No Was there de-escalation of care discussed even if they declined (Discuss DNR or withdrawal of care, Hospice)? DNR status @ -No What co-morbidities impacted this encounter? (DM, HTN, Smoking, COPD, CAD, Cancer, CVA, ARF, Chemo, Hep., AIDS, mental health diagnosis, sleep apnea, morbid obesity)? @ -None Was patient admitted / discharged? Hospital course, mention meds given and route, prescriptions, significant lab abnormalities, going to OR and other pertinent info. @67-year-old male with left leg swelling, concern for DVT, ultrasound negative for DVT swelling likely normal postoperative swelling. Will follow-up with his orthopedic surgeon. Undiagnosed new problem with uncertain prognosis? @ -No Drug Therapy requiring intensive monitoring for toxicity (Heparin, Nitro, Insulin, Cardizem)? @ -No Were any procedures done? @ -No Diagnosis/symptom? @ -[Postoperative leg swelling Acute, or Chronic, or Acute on Chronic? @ -Acute Uncomplicated (without systemic symptoms) or Complicated (systemic symptoms)? @ -[default Side effects of treatment? @ -No Exacerbation, Progression, or Severe Exacerbation? @ -No Poses a threat to life or bodily function? How? (Chest pain, [place], [place], pneumonia, PE, COPD, DKA, ARF, appy, cholecystitis, CVA, Diverticulitis, Homicidal, Suicidal, threat to staff... and all critical care pts) @ -No Disposition Clinical Impression: S/P total left hip arthroplasty Disposition: HOME SELF-CARE Condition: Good Instructions (If sedation given, give patient instructions): Leg Edema (ED) Is patient prescribed a controlled substance at d/c from ED?: No Referrals: Madonna Steinberg [Primary Care Provider] - 1-2 days Junaid Coelho MD [STAFF PHYSICIAN] - 1-2 days Time of Disposition: 19:30
--- NOTE | 2023-09-01 19:20 | US ---
EXAMINATION TYPE: US venous doppler duplex LE LT DATE OF EXAM: 09/01/2023 6:47 PM COMPARISON: NONE CLINICAL INDICATION: Male, 67 years old with history of Postop left hip pain and swelling; L hip surg rosenda last Friday. Left calf swelling today, no pain. On blood thinners SIDE PERFORMED: Left TECHNIQUE: The lower extremity deep venous system is examined utilizing real time linear array sonog jeffery with graded compression, doppler sonography and color-flow sonography. VESSELS IMAGED: Common Femoral Vein Deep Femoral Vein Greater Saphenous Vein * Femoral Vein Popliteal Vein Small Saphenous Vein * Proximal Calf Veins (* superficial vessels) Left Leg: No evidence for DVT. Edema noted in calf IMPRESSION: Grayscale, color doppler, spectral doppler imaging performed of the deep veins of the lo wer extremities. There is normal flow, compressibility, vascular waveforms.
[2023-09-01 19:47] VITALS: BP 137/78; PULSE 70
== END 2023-09-01 19:43 | disposition home or self-care (01) ==
LOC: EC 18:04
DX: Z96.642 Presence of left artificial hip joint (principal); Z88.8 Allergy status to other drugs, medicaments and biological substances
CPT/HCPCS: 99283

== ENCOUNTER 2024-09-05 02:30 | Emergency (ER) | payer MEDICARE ==
[2024-09-05 02:37] VITALS: RESP 18; TEMP 98.3
[2024-09-05 03:08] LABS: Basophils # (A) 0.1 k/uL (0-0.2); Basophils % (A) 1 %; Eosinophils # (A) 0.2 k/uL (0-0.7); Eosinophils % (A) 1 %; HCT 48.2 % (39.0-53.0); HGB 15.9 gm/dL (13.0-17.5); Lymphocytes # (A) 1.7 k/uL (1.0-4.8); Lymphocytes % (A) 14 %; MCH 30.1 pg (25.0-35.0); MCHC 32.9 g/dL (31.0-37.0); MCV 91.3 fL (80.0-100.0); Mean Platelet Volume 8.6; Monocytes # (A) 0.6 k/uL (0-1.0); Monocytes % (A) 5 %; Neutrophils # (A) 9.9 k/uL (1.3-7.7); Neutrophils % (A) 79 %; Platelet Count 169 k/uL (150-450); RBC 5.28 m/uL (4.30-5.90); RDW 13.1 % (11.5-15.5); WBC 12.5 k/uL (3.8-10.6)
[2024-09-05 03:13] LABS: ALT 43 U/L (4-49); AST 30 U/L (17-59); African American GFR (CKD) 83 (>60 ml/min/1.73 sqM); Albumin 4.4 g/dL (3.5-5.0); Alkaline Phosphatase 92 U/L (38-126); Anion Gap 8 mmol/L; Blood Urea Nitrogen 24 mg/dL (9-20); Calcium 9.7 mg/dL (8.4-10.2); Carbon Dioxide 30 mmol/L (22-30); Chloride 96 mmol/L (98-107); Glucose 202 mg/dL (74-99); INR 1.1 (<1.2); Lipase 38 U/L (23-300); Magnesium 2.1 mg/dL (1.6-2.3); Non-African American GFR(CKD) 72 (>60 ml/min/1.73 sqM); Potassium 4.3 mmol/L (3.5-5.1); Prothrombin Time 11.8 sec (10.0-12.5); Sodium 134 mmol/L (137-145); Total Bilirubin 0.7 mg/dL (0.2-1.3)
--- NOTE | 2024-09-05 03:26 | ED ---
General Adult HPI - General Chief complaint: Chest Pain Stated complaint: Chest pressure Time Seen by Provider: 09/05/24 02:35 Source: patient, RN notes reviewed, old records reviewed Mode of arrival: ambulatory Limitations: no limitations - History of Present Illness Initial comments: 68-year-old male presenting for evaluation of lower chest and epigastric pain. Patient states that he was constipated and felt bloated he developed discomfort in the upper abdomen and lower chest. Symptoms began after eating. denied any radiating symptoms. Denied diaphoresis or vomiting. Symptoms have been present for the past several days and are not worse with exertion. patient has no prior history of CAD. History of hypertension and hyperlipidemia. He is a non- smoker. Symptoms began up around 3 hours prior to arrival. - Related Data Home Medications Medication Instructions Recorded Confirmed Cider Vinegar [Apple Cider Vinegar] 600 mg PO DAILY 09/17/16 08/26/23 Mv-Min/Folic/K1/Lycopen/Lutein 1 each PO DAILY 09/17/16 08/26/23 [Centrum Silver Men Tablet] Magnesium 400 mg PO DAILY 08/21/23 08/26/23 Olmesartan [Benicar] 40 mg PO DAILY 08/21/23 08/26/23 amLODIPine BESYLATE 10 mg PO DAILY 08/21/23 08/26/23 Previous Rx's Medication Instructions Recorded Apixaban [Eliquis] 2.5 mg PO BID #60 tab 08/27/23 HYDROcodone/APAP 7.5-325MG [[place]inton 1 - 2 each PO Q6HR PRN #42 tab 08/27/23 7.5] Sennosides/Docusate Sodium [Senna 1 each PO DAILY #20 capsule 08/27/23 Plus 8.6-50 mg Softgel] Allergies Allergy/AdvReac Type Severity Reaction Status Date / Time Isemiuq-AKE-HuV Reductase AdvReac MUSCLE PAIN Verified 09/05/24 02:37 Inhibitor [Gqsphql-Wmy-Xhp Reductase Inhibitor] Review of Systems ROS Statement: Those systems with pertinent positive or pertinent negative responses have been documented in the HPI. ROS Other: All systems not noted in ROS Statement are negative. Past Medical History Past Medical History: GERD/Reflux, Hyperlipidemia, Hypertension Additional Past Medical History / Comment(s): HX OF COLON POLYP History of Any Multi-Drug Resistant Organisms: None Reported Additional Past Surgical History / Comment(s): COLONOSCOPY Additional Past Anesthesia/Blood Transfusion Reaction / Comment(s): NO GENERAL ANESTHESIA EVER Past Psychological History: No Psychological Hx Reported Smoking Status: Never smoker Past Alcohol Use History: None Reported Past Drug Use History: None Reported - Past Family History Brother(s) Family Medical History: Cancer Additional Family Medical History / Comment(s): COLON General Exam Limitations: no limitations General appearance: alert, in no apparent distress Head exam: Present: atraumatic, normocephalic Eye exam: Present: normal appearance, PERRL ENT exam: Present: normal exam Neck exam: Present: normal inspection. Absent: tenderness, meningismus Respiratory exam: Present: normal lung sounds bilaterally. Absent: respiratory distress, wheezes Cardiovascular Exam: Present: regular rate, normal rhythm GI/Abdominal exam: Present: soft. Absent: distended, tenderness, guarding Extremities exam: Present: normal inspection, normal capillary refill Neurological exam: Present: alert, oriented X3, CN II-XII intact. Absent: motor sensory deficit Psychiatric exam: Present: normal affect, normal mood Skin exam: Present: warm, dry, intact. Absent: cyanosis, diaphoretic Course Vital Signs 09/05/24 09/05/24 09/05/24 02:35 03:47 04:35 Temperature 98.3 F Pulse Rate 55 L 58 L 57 L Respiratory 18 18 18 Rate Blood Pressure 142/78 140/80 125/76 O2 Sat by Pulse 97 95 97 Oximetry Medical Decision Making - Medical Decision Making Was pt. sent in by a medical professional or institution (, PA, QA SPECIALIST, urgent care, hospital, or assisted...) When possible be specific @ -No Did you speak to anyone other than the patient for history (EMS, parent, family, police, friend...)? What history was obtained from this source @ -No Did you review nursing and triage notes (agree or disagree)? Why? @ -I reviewed and agree with nursing and triage notes Were old charts reviewed (outside hosp., previous admission, EMS record, old EKG, old radiological studies, urgent care reports/EKG's, assisted records)? Report findings @ -No old charts were reviewed Differential Chest Pain: Stable Angina, Unstable Angina, STEMI, NSTEMI Aortic Dissection, Pneumothorax, Musculoskeletal, Esophageal Spasm GERD, Cholecystitis, Pancreatitis, Zoster, this is not meant to be an all-inclusive list. EKG interpreted by me (3pts min.). @ -[Sinus rhythm incomplete right bundle branch block rate of 69, NV interval 268, QRS duration 118, QTc [address] segment elevation X-rays interpreted by me (1pt min.). @ -Chest x-ray negative for acute cardiopulmonary findings. CT interpreted by me (1pt min.). @ -[None done U/S interpreted by me (1pt. min.). @ -None done What testing was considered but not performed or refused? (CT, X-rays, U/S, labs)? Why? @ -None What meds were considered but not given or refused? Why? @ -None Did you discuss the management of the patient with other professionals (professionals i.e. , PA, QA SPECIALIST, lab, RT, psych nurse, social media strategist, utility worker production, teacher, special officer, director of casework)? Give summary @ -No Was smoking cessation discussed for >3mins.? @ -No Was critical care preformed (if so, how long)? @ -No Were there social determinants of health that impacted care today? How? (Ho melessness, low income, unemployed, alcoholism, drug addiction, transportation, low edu. Level, literacy, decrease access to med. care, correction, rehab)? @ -No Was there de-escalation of care discussed even if they declined (Discuss DNR or withdrawal of care, Hospice)? DNR status @ -No What co-morbidities impacted this encounter? (DM, HTN, Smoking, COPD, CAD, Cancer, CVA, ARF, Chemo, Hep., AIDS, mental health diagnosis, sleep apnea, morbid obesity)? @ -None Was patient admitted / discharged? Hospital course, mention meds given and route, prescriptions, significant lab abnormalities, going to OR and other pertinent info. @ -68-year-old male with epigastric, lower chest discomfort related to eating. No tenderness on exam. I did perform EKG which was sinus without ST segment elevation. Chest x-ray clear, normal CBC, normal CMP, negative initial troponin. Patient's symptoms were atypical for cardiac but I did perform a second troponin testing in the emergency department which was also negative. Patient had resolution of symptoms. He was offered observation but declined and would prefer discharge with return parameters and close outpatient follow-up. Undiagnosed new problem with uncertain prognosis? @ -No Drug Therapy requiring intensive monitoring for toxicity (Heparin, Nitro, Insulin, Cardizem)? @ -No Were any procedures done? @ -No Diagnosis/symptom? @ -Epigastric discomfort, lower chest pain. Acute, or Chronic, or Acute on Chronic? @Acute Side effects of treatment? @ -No Exacerbation, Progression, or Severe Exacerbation? @ -No Poses a threat to life or bodily function? How? (Chest pain, USA, ND, pneumonia, PE, COPD, DKA, ARF, appy, cholecystitis, CVA, Diverticulitis, Homicidal, Suicidal, threat to staff... and all critical care pts) @ -[Low risk at this time - Lab Data Result diagrams: 09/05/24 02:56 09/05/24 02:56 Lab Results 09/05/24 09/05/24 09/05/24 Range/Units 02:56 02:56 02:56 WBC 12.5 H (3.8-10.6) k/uL RBC 5.28 (4.30-5.90) m/uL Hgb 15.9 (13.0-17.5) gm/dL Hct 48.2 (39.0-53.0) % MCV 91.3 (80.0-100.0) fL MCH 30.1 (25.0-35.0) pg MCHC 32.9 (31.0-37.0) g/dL RDW 13.1 (11.5-15.5) % Plt Count 169 (150-450) k/uL MPV 8.6 Neutrophils % 79 % Lymphocytes % 14 % Monocytes % 5 % Eosinophils % 1 % Basophils % 1 % Neutrophils # 9.9 H (1.3-7.7) k/uL Lymphocytes # 1.7 (1.0-4.8) k/uL Monocytes # 0.6 (0-1.0) k/uL Eosinophils # 0.2 (0-0.7) k/uL Basophils # 0.1 (0-0.2) k/uL PT 11.8 (10.0-12.5) sec INR 1.1 (<1.2) APTT 23.0 (22.0-30.0) sec Sodium 134 L (137-145) mmol/L Potassium 4.3 (3.5-5.1) mmol/L Chloride 96 L (98-107) mmol/L Carbon Dioxide 30 (22-30) mmol/L Anion Gap 8 mmol/L BUN 24 H (9-20) mg/dL Creatinine 1.05 (0.66-1.25) mg/dL Est GFR (CKD-EPI)AfAm 83 (>60 ml/min/1.73 sqM) Est GFR (CKD-EPI)NonAf 72 (>60 ml/min/1.73 sqM) Glucose 202 H (74-99) mg/dL Calcium 9.7 (8.4-10.2) mg/dL Magnesium 2.1 (1.6-2.3) mg/dL Total Bilirubin 0.7 (0.2-1.3) mg/dL AST 30 (17-59) U/L ALT 43 (4-49) U/L Alkaline Phosphatase 92 (38-126) U/L Troponin I (0.000-0.034) ng/mL Total Protein 7.0 (6.3-8.2) g/dL Albumin 4.4 (3.5-5.0) g/dL Lipase 38 (23-300) U/L 09/05/24 09/05/24 Range/Units 02:56 04:37 WBC (3.8-10.6) k/uL RBC (4.30-5.90) m/uL Hgb (13.0-17.5) gm/dL Hct (39.0-53.0) % MCV (80.0-100.0) fL MCH (25.0-35.0) pg MCHC (31.0-37.0) g/dL RDW (11.5-15.5) % Plt Count (150-450) k/uL MPV Neutrophils % % Lymphocytes % % Monocytes % % Eosinophils % % Basophils % % Neutrophils # (1.3-7.7) k/uL Lymphocytes # (1.0-4.8) k/uL Monocytes # (0-1.0) k/uL Eosinophils # (0-0.7) k/uL Basophils # (0-0.2) k/uL PT (10.0-12.5) sec INR (<1.2) APTT (22.0-30.0) sec Sodium (137-145) mmol/L Potassium (3.5-5.1) mmol/L Chloride (98-107) mmol/L Carbon Dioxide (22-30) mmol/L Anion Gap mmol/L BUN (9-20) mg/dL Creatinine (0.66-1.25) mg/dL Est GFR (CKD-EPI)AfAm (>60 ml/min/1.73 sqM) Est GFR (CKD-EPI)NonAf (>60 ml/min/1.73 sqM) Glucose (74-99) mg/dL Calcium (8.4-10.2) mg/dL Magnesium (1.6-2.3) mg/dL Total Bilirubin (0.2-1.3) mg/dL AST (17-59) U/L ALT (4-49) U/L Alkaline Phosphatase (38-126) U/L Troponin I <0.012 <0.012 (0.000-0.034) ng/mL Total Protein (6.3-8.2) g/dL Albumin (3.5-5.0) g/dL Lipase (23-300) U/L Disposition Clinical Impression: Atypical chest pain Disposition: HOME SELF-CARE Condition: Fair Instructions (If sedation given, give patient instructions): Chest Pain (ED) Additional Instructions: Please return to the emergency department if symptoms worsen or change. Is patient prescribed a controlled substance at d/c from ED?: No Referrals: Wilfredo Singletary III, MD [Primary Care Provider] - 1-2 days Time of Disposition: 05:51
[2024-09-05] MEDS: ASPIRIN 325 MG TAB PO STA (03:43)
[2024-09-05] MEDS: MAG HYDROX/AL HYDROX/SIMETH 30 ML CUP PO PRN (03:44)
--- NOTE | 2024-09-05 04:30 | XR ---
EXAM: XR Chest, 2 Views CLINICAL HISTORY: ITS.REASON XR Reason: Chest Pain TECHNIQUE: Frontal and lateral views of the chest. COMPARISON: No relevant prior studies available. FINDINGS: Lungs: No consolidation or mass. Pleural space: No effusion. Heart: Mild cardiomegaly. Bones/joints: No acute findings. IMPRESSION: No acute cardiopulmonary process.
[2024-09-05 05:27] VITALS: PULSE 57
[2024-09-05 06:00] VITALS: BP 129/74
== END 2024-09-05 05:59 | disposition home or self-care (01) ==
LOC: EC 02:30
DX: R07.89 Other chest pain (principal); E78.5 Hyperlipidemia, unspecified; I10 Essential (primary) hypertension; Z88.8 Allergy status to other drugs, medicaments and biological substances
CPT/HCPCS: 36415; 71046; 80053; 83690; 83735; 84484; 85025; 85610; 85730; 93005; 99285

== ENCOUNTER → 2024-09-15 | Outpatient (CLI) | payer MEDICARE ==
[~2024-09-15] MED LIST changes: -HYDROmorphone 0.5 MG/0.5 ML SYRINGE IVP PRN; -LIDOCAINE 1% (10MG/ML) FOR IV START INTRADERMA PRN; +REGADENOSON 0.4 MG/5 ML SYRINGE IV PRN; -TRANEXAMIC 1,000 MG/100ML-NACL 1,000 MG in SALINE 1 100ML.BAG IVPB PRN
--- NOTE | 2024-09-15 11:39 | CA ---
Lexiscan Nuclear Stress Test Report Name: Ronald Vance Exam Date: 09/15/2024 10:21 Exam Location: [facility] Ht (in): 65 Wt (lb): 186 BSA: 1.92 Ordering Phys: Wilfredo Singletary MD Referring Phys: Wilfredo Singletary MD Technologist: Girish Rice Age: 68 Gender: M : 1955 Procedure CPT: Indications: R07.89 OTHER CHEST PAIN E11.9 TYPE 2 DIABETES SHERLYN ICD-10 Codes: Patient History: Medications: Amlodipine, ezetimibe, olmesartan, metoprolol, centrum Meds past 24 hrs: Pretest Chest Pain: STRESS TEST Lexiscan Protocol Exercise Duration (min:sec): 02:[address] Depressions (mm): Angina Score: Degroot Score: Resting HR (bpm): 66 Peak HR (bpm): 100 Resting BP (mmHg): 130 / 71 Peak BP (mmHg): 138 / 72 MPHR: 150 Target HR: 128 % MPHR: 67 METS: 1.0 Total Dose: Peak Dose: Atropine: Double Product: 09931 BP Response: Stress Termination: Infusion Complete Stress Symptoms: No Symptoms Stress Summary: ECG ANALYSIS Resting ECG: Stress ECG: CONCLUSIONS RESTING EKG: [Normal sinus rhythm, normal EKG] , Heart rate 62 BPM Patient recieved IV infusion of Lexiscan 0.4mg and at peak infusion STRESS EKG showed: [No significant ST-T wave changes diagnostic for ischemia by ST segment analysis] ARRYTHMIAS: [No ectopic rhythms or sustained arrythmias] CONCLUSION: 1. Normal hemodynamic and clinical response to Lexiscan infusion. 2. Non-ischemic EKG response to lexiscan infusion Please refer to the nuclear imaging portion of this stress test for complete interpretation of the study. Dr Elvin Blankenship (Electronically Signed) Final Date: 15 September 2024 11:38
--- NOTE | 2024-09-16 08:04 | NM ---
EXAMINATION TYPE: NM stress lexiscan cardiolite DATE OF EXAM: 09/15/2024 COMPARISON: NONE CLINICAL INDICATION: Male, 68 years old with history of R07.89 OTHER CHEST PAIN E11.9 TYPE 2 DIABETES SHERLYN; TECHNIQUE: After the intravenous administration of 9.6 mCi Tc 99m Sestamibi - Cardiolite resting SPE CT images acquired 55 minutes post injection. The patient received 0.4mg Lexiscan, 25.5 mCi Tc 99m Sestamibi - Stress images obtained [address] injection FINDINGS: Review of stress and rest SPECT images demonstrates possible small area of subtle reversibility at th e apical septal wall on coronal slice 31. This is corroborated on polar maps. Gated analysis shows no rmal wall motion with an estimated left ventricular ejection fraction of 69 %. TID is calculated at 0.93, within normal limits. IMPRESSION: Possible small area of reversibility involving the apical septal wall. Further clinical correlation r ecommended. No other reversible ischemia identified. [facility], , 09/16/2024 8:02 AM
== END | disposition home or self-care (01) ==
LOC: RADNMMAIN 09-13 08:43
PROVIDERS: ATTEND Family Medicine
DX: E11.9 Type 2 diabetes mellitus without complications (principal); R07.89 Other chest pain
CPT/HCPCS: 93017; 78452; A9500; J2785

== ENCOUNTER → 2024-12-02 | Outpatient (CLI) | payer MEDICARE ==
--- NOTE | 2024-12-02 09:33 | US ---
EXAMINATION TYPE: US abdomen complete DATE OF EXAM: 12/02/2024 COMPARISON: NONE CLINICAL INDICATION: Male, 69 years old with history of R10.11 RIGHT UPPER QUADRANT PAIN; RUQ pain x 3 weeks TECHNIQUE: Grayscale and color Doppler imaging of the abdomen was performed. FINDINGS: EXAM MEASUREMENTS: Liver Length: 15.7 cm Gallbladder Wall: 0.25 cm CBD: 0.28 cm, color Doppler imaging was utilized to isolate the common bile duct for measurement. Spleen: 11.3 cm Right Kidney: 10.7 x 6.2 x 5.4 cm Left Kidney: 10.5 x 5.3 x 5.6 cm INSTRUMENTATION MANAGER NOTES: Pancreas: Obscured by bowel gas Liver: appears heterogeneous Gallbladder: tumefactive sludge seen Evidence for sonographic Gómez's sign: No CBD: wnl Spleen: wnl Right Kidney: wnl, No hydronephrosis, calculi or masses seen Left Kidney: wnl, No hydronephrosis, calculi or masses seen Upper IVC: obscured by bowel gas Abd Aorta: limited due to bowel gas The liver is homogenous. The intrahepatic portion of the IVC and proximal abdominal aorta are within normal limits. There is no evidence of cholelithiasis. Common bile duct is unremarkable. The visu alized portions of the pancreas are homogenous. The spleen is unremarkable. Kidneys are symmetric a nd free of hydronephrosis. No renal lesions are seen. IMPRESSION: Hepatic steatosis [facility], , 12/02/2024 9:31 AM
== END | disposition home or self-care (01) ==
LOC: RADUSWWP 08:44
PROVIDERS: ATTEND Family Medicine
DX: K76.0 Fatty (change of) liver, not elsewhere classified (principal); R10.13 Epigastric pain
CPT/HCPCS: 76700

== ENCOUNTER 2024-12-03 03:54 | Inpatient (IN) | payer MEDICARE ==
[2024-12-03 04:29] LABS: Basophils # (A) 0.06 10*3/uL (0.00-0.10); Basophils % (A) 0.4 %; Eosinophils # (A) 0.70 10*3/uL (0.04-0.35); Eosinophils % (A) 4.8 %; HCT 43.3 % (39.6-50.0); HGB 15.0 g/dL (13.0-17.0); Lymphocytes # (A) 2.02 10*3/uL (0.90-5.00); Lymphocytes % (A) 13.8 %; MCH 30.9 pg (27.0-32.0); MCHC 34.6 g/dL (32.0-37.0); MCV 89.3 fL (80.0-97.0); Monocytes # (A) 1.21 10*3/uL (0.20-1.00); Monocytes % (A) 8.3 %; Neutrophils # (A) 10.59 10*3/uL (1.80-7.70); Neutrophils % (A) 72.3 %; Platelet Count 198 10*3/uL (140-440); RBC 4.85 10*6/uL (4.40-5.60); RDW 13.4 % (11.5-14.5); WBC 14.64 10*3/uL (4.50-10.00)
[2024-12-03 04:44] LABS: ALT 63 U/L (4-49); AST 61 U/L (17-59); African American GFR (CKD) 79 (>60 ml/min/1.73 sqM); Albumin 3.8 g/dL (3.5-5.0); Alkaline Phosphatase 178 U/L (38-126); Amylase 33 U/L (30-110); Anion Gap 12 mmol/L; Blood Urea Nitrogen 30 mg/dL (9-20); Calcium 8.8 mg/dL (8.4-10.2); Carbon Dioxide 25 mmol/L (22-30); Chloride 96 mmol/L (98-107); Glucose 149 mg/dL (74-99); Lipase 17 U/L (23-300); Non-African American GFR(CKD) 68 (>60 ml/min/1.73 sqM); Potassium 4.2 mmol/L (3.5-5.1); Sodium 133 mmol/L (137-145); Total Protein 6.4 g/dL (6.3-8.2)
--- NOTE | 2024-12-03 04:56 | ED ---
Abdominal Pain HPI - General Chief Complaint: Abdominal Pain Stated Complaint: Abdominal pain Time Seen by Provider: 12/03/24 04:03 Source: patient Mode of arrival: ambulatory Limitations: no limitations - History of Present Illness Initial Comments: This patient is a 69-year-old man who presents with complaint that he was awakened from sleep approximately 3 AM by right upper quadrant pain. He describes it as a sharp stabbing pain. It is intermittent. Is usually worse if he is taking a deep breath or with certain movement or palpation. The patient states that going back a number of weeks he has been having some upper abdominal pains and he in fact had been sent for ultrasound of the abdomen yesterday. The pains tonight are not accompanied by any other symptoms. No fever or chills. No cough, dyspnea, chest pain. No nausea or vomiting. He has not noted a change in urination or bowel movements. MD Complaint: abdominal pain Onset/Timin -: minutes(s) Location: RUQ Radiation: none Migration to: no migration Severity scale (1-10): 8 Quality: sharp Consistency: intermittent Improves With: nothing Worsens With: movement, other (Deep inspiration) - Related Data Home Medications Medication Instructions Recorded Confirmed Magnesium 400 mg PO DAILY 08/21/23 12/03/24 Aspirin EC [Ecotrin Low Dose] 81 mg PO DAILY 12/03/24 12/03/24 Ezetimibe [Zetia] 10 mg PO DAILY 12/03/24 12/03/24 Olmesartan Medoxomil [Benicar] 40 mg PO DAILY 12/03/24 12/03/24 Omeprazole 20 mg PO AC-BRKFST 12/03/24 12/03/24 Rosuvastatin [Crestor] 20 mg PO DAILY 12/03/24 12/03/24 amLODIPine [Norvasc] 10 mg PO DAILY 12/03/24 12/03/24 metFORMIN HCL [Glucophage] 500 mg PO BID-W/MEALS 12/03/24 12/03/24 Previous Rx's Medication Instructions Recorded HYDROcodone/APAP 5-325MG [[place] 1 each PO Q6HR PRN #12 tab 12/07/24 5-325] Allergies Allergy/AdvReac Type Severity Reaction Status Date / Time Eqpscqt-CCD-LsB Reductase AdvReac MUSCLE PAIN Verified 12/03/24 09:53 Inhibitor [Ilzpcnf-Mqs-Rvg Reductase Inhibitor] Review of Systems ROS Statement: Those systems with pertinent positive or pertinent negative responses have been documented in the HPI. ROS Other: All systems not noted in ROS Statement are negative. Constitutional: Denies: fever, chills Respiratory: Denies: cough, dyspnea Cardiovascular: Denies: chest pain, palpitations, edema Gastrointestinal: Reports: abdominal pain. Denies: nausea, vomiting, diarrhea, melena, hematochezia Genitourinary: Denies: dysuria, hematuria Musculoskeletal: Denies: back pain Skin: Denies: rash Neurological: Denies: headache, weakness Past Medical History Past Medical History: GERD/Reflux, Hyperlipidemia, Hypertension Additional Past Medical History / Comment(s): HX OF COLON POLYP History of Any Multi-Drug Resistant Organisms: None Reported Additional Past Surgical History / Comment(s): COLONOSCOPY Additional Past Anesthesia/Blood Transfusion Reaction / Comment(s): NO GENERAL ANESTHESIA EVER Past Psychological History: No Psychological Hx Reported Smoking Status: Never smoker Past Alcohol Use History: None Reported Past Drug Use History: None Reported - Past Family History Brother(s) Family Medical History: Cancer Additional Family Medical History / Comment(s): COLON General Exam Limitations: no limitations General appearance: alert, in no apparent distress Head exam: Present: atraumatic, normocephalic Eye exam: Present: normal appearance. Absent: scleral icterus, conjunctival injection Neck exam: Present: normal inspection Respiratory exam: Present: normal lung sounds bilaterally. Absent: respiratory distress, wheezes, rales, rhonchi, stridor, accessory muscle use Cardiovascular Exam: Present: regular rate, normal rhythm, normal heart sounds. Absent: systolic murmur, diastolic murmur, rubs, gallop GI/Abdominal exam: Present: soft, tenderness (Mild point tenderness in the right upper quadrant, no rebound or guarding). Absent: distended, guarding, rebound, rigid, mass Extremities exam: Present: normal inspection, normal capillary refill. Absent: pedal edema, calf tenderness Back exam: Present: normal inspection. Absent: CVA tenderness (R), CVA tenderness (L) Neurological exam: Present: alert Skin exam: Present: warm, dry, intact, normal color. Absent: rash Course Vital Signs 12/03/24 12/03/24 12/03/24 03:55 07:11 07:45 Temperature 97.3 F L 98.2 F Pulse Rate 72 68 Pulse Rate [ Pulse Oximetery ] Respiratory 18 Rate Blood Pressure 162/79 126/76 Blood Pressure [Left Arm] O2 Sat by Pulse 95 95 Oximetry 12/03/24 12/03/24 12/03/24 11:15 12:45 13:57 Temperature 98.2 F 99.1 F 98.6 F Pulse Rate 61 62 Pulse Rate [ 71 Pulse Oximetery ] Respiratory 14 18 16 Rate Blood Pressure 117/74 135/74 Blood Pressure 125/75 [Left Arm] O2 Sat by Pulse 95 93 L 96 Oximetry Medical Decision Making - Medical Decision Making The patient is a 69-year-old man with right upper quadrant pain and tenderness. He is sent for CT scan which I interpreted to show what appears to be inf lammation surrounding gallbladder. Dr. Crow mcdowell but has not called back by shift changed and I discussed with Dr. Nix who will speak with the surgeon Was pt. sent in by a medical professional or institution (, PA, STEWARDESS SUPERVISOR, urgent care, hospital, or fci...) When possible be specific @ -[No] Did you speak to anyone other than the patient for history (EMS, parent, family, police, friend...)? What history was obtained from this source @ -[No] Did you review nursing and triage notes (agree or disagree)? Why? @ -[I reviewed and agree with nursing and triage notes] Were old charts reviewed (outside hosp., previous admission, EMS record, old EKG, old radiological studies, urgent care reports/EKG's, fci records)? Report findings @ -[No old charts were reviewed] Differential Diagnosis (chest pain, altered mental status, abdominal pain women, abdominal pain men, vaginal bleeding, weakness, fever, dyspnea, syncope, headache, dizziness, GI bleed, back pain, seizure, CVA, palpatations, mental health, musculoskeletal)? @ -Differential Abdominal Pain Men: Appendicitis, cholecystitis, diverticulosis, ischemic bowel, pancreatitis, hepatitis, UTI, gastroenteritis, AAA, incarcerated hernia, bowel obstruction, constipation, inflammatory bowel, hepatitis, peptic ulcer disease, splenic infarction, perforated viscus, testicular torsion, this is not meant to be an all-inclusive list EKG interpreted by me (3pts min.). @ -[As above] X-rays interpreted by me (1pt min.). @ -[None done] CT interpreted by me (1pt min.). @ -[I interpreted as above U/S interpreted by me (1pt. min.). @ -[None done] What testing was considered but not performed or refused? (CT, X-rays, U/S, labs)? Why? @ -[None] What meds were considered but not given or refused? Why? @ -[None] Did you discuss the management of the patient with other professionals (professionals i.e. , PA, STEWARDESS SUPERVISOR, lab, RT, psych nurse, social service worker, pharmaceutical detailer, teacher, fire control officer, leather case finisher)? Give summary @ -[No] Was smoking cessation discussed for >3mins.? @ -[No] Was critical care preformed (if so, how long)? @ -Yes, 35 minutes Were there social determinants of health that impacted care today? How? ( Homelessness, low income, unemployed, alcoholism, drug addiction, transportation, low edu. Level, literacy, decrease access to med. care, care home, rehab)? @ -[No] Was there de-escalation of care discussed even if they declined (Discuss DNR or withdrawal of care, Hospice)? DNR status @ -[No] What co-morbidities impacted this encounter? (DM, HTN, Smoking, COPD, CAD, Cancer, CVA, ARF, Chemo, Hep., AIDS, mental health diagnosis, sleep apnea, morbid obesity)? @ -[None] Was patient admitted / discharged? Hospital course, mention meds given and route, prescriptions, significant lab abnormalities, going to OR and other pertinent info. @ -See above. The patient was signed out pending return call by the surgeon. I was informed that the case was discussed with surgery, the patient was admitted. Patient had been started on fluid resuscitation and IV antibiotics. Undiagnosed new problem with uncertain prognosis? @ -[No] Drug Therapy requiring intensive monitoring for toxicity (Heparin, Nitro, Insulin, Cardizem)? @ -[No] Were any procedures done? @ -[No] Diagnosis/symptom? @ -[Acute abdominal pain Cholecystitis Acute, or Chronic, or Acute on Chronic? @ -[Acute Uncomplicated (without systemic symptoms) or Complicated (systemic symptoms)? @ -[Uncomplicated Side effects of treatment? @ -[No] Exacerbation, Progression, or Severe Exacerbation? @ -[No] Poses a threat to life or bodily function? How? (Chest pain, USA, PA, pneumonia, PE, COPD, DKA, ARF, appy, cholecystitis, CVA, Diverticulitis, Homicidal, Suicidal, threat to staff... and all critical care pts) @ -[Yes there is risk of worsening intra-abdominal infection/sepsis/ All treatments are based on ideal body weight as in ED triage - Lab Data Result diagrams: 12/08/24 04:30 12/08/24 04:30 Lab Results 12/03/24 12/03/24 12/03/24 Range/Units 04:12 04:12 04:12 WBC 14.64 H (4.50-10.00) 10*3/uL RBC 4.85 (4.40-5.60) 10*6/uL Hgb 15.0 (13.0-17.0) g/dL Hct 43.3 (39.6-50.0) % MCV 89.3 (80.0-97.0) fL MCH 30.9 (27.0-32.0) pg MCHC 34.6 (32.0-37.0) g/dL Plt Count 198 (140-440) 10*3/uL MPV 11.5 (9.5-12.2) fL Immature Gran % (Auto) 0.4 % Neutrophils % 72.3 % Lymphocytes % 13.8 % Monocytes % 8.3 % Eosinophils % 4.8 % Basophils % 0.4 % Immature Gran # 0.06 H (0.00-0.04) 10*3/uL Neutrophils # 10.59 H (1.80-7.70) 10*3/uL Lymphocytes # 2.02 (0.90-5.00) 10*3/uL Monocytes # 1.21 H (0.20-1.00) 10*3/uL Eosinophils # 0.70 H (0.04-0.35) 10*3/uL Basophils # 0.06 (0.00-0.10) 10*3/uL Sodium 133 L (137-145) mmol/L Potassium 4.2 (3.5-5.1) mmol/L Chloride 96 L (98-107) mmol/L Carbon Dioxide 25 (22-30) mmol/L Anion Gap 12 mmol/L BUN 30 H (9-20) mg/dL Creatinine 1.09 (0.66-1.25) mg/dL Est GFR (CKD-EPI)AfAm 79 (>60 ml/min/1.73 sqM) Est GFR (CKD-EPI)NonAf 68 (>60 ml/min/1.73 sqM) Glucose 149 H (74-99) mg/dL Estimated Ave Glu mg/dL 143 mg/dL Hemoglobin A1c 6.6 H (<=6.0) % Calcium 8.8 (8.4-10.2) mg/dL Total Bilirubin 1.4 H (0.2-1.3) mg/dL AST 61 H (17-59) U/L ALT 63 H (4-49) U/L Alkaline Phosphatase 178 H (38-126) U/L Total Protein 6.4 (6.3-8.2) g/dL Albumin 3.8 (3.5-5.0) g/dL Amylase 33 (30-110) U/L Lipase 17 L (23-300) U/L Urine Color Urine Appearance (Clear) Urine pH (5.0-8.0) Ur Specific [place] (1.001-1.035) Urine Protein (Negative) Urine Glucose (UA) (Negative) Urine Ketones (Negative) Urine Blood (Negative) Urine Nitrite (Negative) Urine Bilirubin (Negative) Urine Urobilinogen (<2.0) mg/dL Ur Leukocyte Esterase (Negative) 12/03/24 Range/Units 06:33 WBC (4.50-10.00) 10*3/uL RBC (4.40-5.60) 10*6/uL Hgb (13.0-17.0) g/dL Hct (39.6-50.0) % MCV (80.0-97.0) fL MCH (27.0-32.0) pg MCHC (32.0-37.0) g/dL Plt Count (140-440) 10*3/uL MPV (9.5-12.2) fL Immature Gran % (Auto) % Neutrophils % % Lymphocytes % % Monocytes % % Eosinophils % % Basophils % % Immature Gran # (0.00-0.04) 10*3/uL Neutrophils # (1.80-7.70) 10*3/uL Lymphocytes # (0.90-5.00) 10*3/uL Monocytes # (0.20-1.00) 10*3/uL Eosinophils # (0.04-0.35) 10*3/uL Basophils # (0.00-0.10) 10*3/uL Sodium (137-145) mmol/L Potassium (3.5-5.1) mmol/L Chloride (98-107) mmol/L Carbon Dioxide (22-30) mmol/L Anion Gap mmol/L BUN (9-20) mg/dL Creatinine (0.66-1.25) mg/dL Est GFR (CKD-EPI)AfAm (>60 ml/min/1.73 sqM) Est GFR (CKD-EPI)NonAf (>60 ml/min/1.73 sqM) Glucose (74-99) mg/dL Estimated Ave Glu mg/dL mg/dL Hemoglobin A1c (<=6.0) % Calcium (8.4-10.2) mg/dL Total Bilirubin (0.2-1.3) mg/dL AST (17-59) U/L ALT (4-49) U/L Alkaline Phosphatase (38-126) U/L Total Protein (6.3-8.2) g/dL Albumin (3.5-5.0) g/dL Amylase (30-110) U/L Lipase (23-300) U/L Urine Color Yellow Urine Appearance Clear (Clear) Urine pH 5.5 (5.0-8.0) Ur Specific [place] 1.025 (1.001-1.035) Urine Protein Trace H (Negative) Urine Glucose (UA) Negative (Negative) Urine Ketones 1+ H (Negative) Urine Blood Negative (Negative) Urine Nitrite Negative (Negative) Urine Bilirubin Negative (Negative) Urine Urobilinogen 2.0 (<2.0) mg/dL Ur Leukocyte Esterase Negative (Negative) Disposition Clinical Impression: Abdominal pain, Acute gangrenous cholecystitis Disposition: ADMITTED IP TO THIS HOSP Condition: Fair Is patient prescribed a controlled substance at d/c from ED?: No
[2024-12-03] MEDS: MORPHINE SULFATE 4 MG/ML SYRINGE IV STA (05:33)
[2024-12-03] MEDS ORDERED: ONDANSETRON 4 MG/2 ML VIAL IVP PRN (07:05)
[2024-12-03] MEDS ORDERED: NALOXONE 0.4 MG/ML 1 ML VIAL IV PRN (07:05)
[2024-12-03 07:06] LABS: Bilirubin,Urine Negative (Negative); Blood,Urine Negative (Negative); Color,Urine Yellow; Glucose,Urine (UA) Negative (Negative); Ketones,Urine 1+ (Negative); Leukocyte Esterase,Urine Negative (Negative); Nitrite,Urine Negative (Negative); PH, Urine 5.5 (5.0-8.0); Protein,Urine Trace (Negative); Specific Gravity,Urine 1.025 (1.001-1.035); Urobilinogen,Urine 2.0 mg/dL (<2.0)
--- NOTE | 2024-12-03 07:18 | CT ---
EXAM: CT Abdomen and Pelvis Without Intravenous Contrast CLINICAL HISTORY: ITS.REASON CT Reason: RUQ pain TECHNIQUE: Axial computed tomography images of the abdomen and pelvis without intravenous contrast. CTDI is 10.9 mGy and DLP is 741.8 mGy-cm. This CT exam was performed using one or more of the following dose reduction techniques: automated exposure control, adjustment of the mA and/or kV according to patient size, and/or use of iterative reconstruction technique. COMPARISON: No relevant prior studies available. FINDINGS: Limitations: Limited evaluation in the absence of contrast. Lung bases: Dependent scarring at the lung bases with bronchiectasis. No consolidation. Heart: Coronary artery calcifications. ABDOMEN: Liver: Unremarkable. Gallbladder and bile ducts: Unremarkable. No calcified stones. No ductal dilation. Pancreas: Unremarkable. No ductal dilation. Spleen: Unremarkable. No splenomegaly. Adrenals: Unremarkable. No mass. Kidneys and ureters: No evidence of radiopaque renal calculi or signs of collecting system dilatation. Stomach and bowel: Findings suspicious for colitis within the right upper quadrant at the hepatic flexure with diffuse annular thickening within the colon with adjacent inflammatory change. Prominent inflammatory change noted extends near the gallbladder with gallbladder wall thickening. Consider repeat imaging with contrast. No evidence of bowel obstruction or ileus. Colonic diverticulosis. No evidence of diverticulitis. PELVIS: Appendix: No findings to suggest acute appendicitis. Bladder: Unremarkable. No stones. Reproductive: Prostatic calcifications. ABDOMEN and PELVIS: Intraperitoneal space: No evidence of free air. Mild mesenteric ascites which may be reactive. Bones/joints: Degenerative changes in the spine. Right total hip arthroplasty changes. No acute fracture. No dislocation. Soft tissues: Umbilical hernia containing fat. Right inguinal hernia containing fat. Vasculature: Atherosclerotic disease. Lymph nodes: Unremarkable. No enlarged lymph nodes. IMPRESSION: 1. Limited evaluation in the absence of contrast. 2. No evidence of radiopaque renal calculi or signs of collecting system dilatation. 3. Findings suspicious for colitis within the right upper quadrant at the hepatic flexure with diffuse annular thickening within the colon with adjacent inflammatory change. Prominent inflammatory change noted extends near the gallbladder with gallbladder wall thickening. Consider repeat imaging with contrast. 4. No evidence of free air. 5. Mild mesenteric ascites which may be reactive. 6. No evidence of bowel obstruction or ileus. 7. Colonic diverticulosis. No evidence of diverticulitis. <MYCVCSECTION> Communications: 12/03/24 07:25 Verify Receipt Verified receipt with MARIA ELENA Whitt for Dr. Brady on 12/03 07:25 (-04:00)
[2024-12-03] MEDS: AMPICILLIN-SULBACTAM 3 GM in SODIUM CHLORIDE 0.9% 100 ML IVPB STA (07:49)
[2024-12-03] MEDS: LACTATED RINGERS 1,000 ML IV ONE (07:50)
[2024-12-03] MEDS: SODIUM CHLORIDE 0.9% 1,000 ML IV SCH (07:52)
[2024-12-03] MEDS: LACTATED RINGERS 500 ML IV ONE (07:52)
[2024-12-03] MEDS: PANTOPRAZOLE 40 MG/10 ML VIAL IV SCH (09:16)
--- NOTE | 2024-12-03 14:48 | P.GSHP ---
History of Present Illness H&P Date: 12/03/24 69-year-old male presented to the emergency department with complaint of a few days of abdominal pain. He states he had this issue previously with pain in the epigastric region and was prescribed 2 weeks of PPI and did have mild relief with the pain worsening and recurring this week. He did follow with his primary care doc and did have ultrasound performed yesterday. Ultrasound was initially read without any significant abnormalities, however addendum was placed today with concerning signs of cholecystitis when reviewed alongside CT of the abdomen and pelvis that was performed in the emergency department. Patient states that what brought him to the emergency department with stabbing right upper quadrant abdominal pain. He states that since he has received pain medication and IV antibiotics that the pain has improved. The patient is noted to have some mild elevation in AST and ALT along with mild elevation in bilirubin. - Review of Systems All systems: negative Past Medical History Past Medical History: GERD/Reflux, Hyperlipidemia, Hypertension Additional Past Medical History / Comment(s): HX OF COLON POLYP History of Any Multi-Drug Resistant Organisms: None Reported Past Surgical History: Orthopedic Surgery Additional Past Surgical History / Comment(s): COLONOSCOPY, July 2022 Hip replacement Additional Past Anesthesia/Blood Transfusion Reaction / Comment(s): NO GENERAL ANESTHESIA EVER Past Psychological History: No Psychological Hx Reported Smoking Status: Never smoker Past Alcohol Use History: None Reported Past Drug Use History: None Reported - Past Family History Brother(s) Family Medical History: Cancer Additional Family Medical History / Comment(s): COLON Medications and Allergies Home Medications Medication Instructions Recorded Confirmed Type Magnesium 400 mg PO DAILY 08/21/23 12/03/24 History Aspirin EC [Ecotrin Low Dose] 81 mg PO DAILY 12/03/24 12/03/24 History Ezetimibe [Zetia] 10 mg PO DAILY 12/03/24 12/03/24 History Olmesartan Medoxomil [Benicar] 40 mg PO DAILY 12/03/24 12/03/24 History Omeprazole 20 mg PO AC-BRKFST 12/03/24 12/03/24 History Rosuvastatin [Crestor] 20 mg PO DAILY 12/03/24 12/03/24 History amLODIPine [Norvasc] 10 mg PO DAILY 12/03/24 12/03/24 History metFORMIN HCL [Glucophage] 500 mg PO BID-W/MEALS 12/03/24 12/03/24 History Allergies Allergy/AdvReac Type Severity Reaction Status Date / Time Tmxeiek-GOO-WaI Reductase AdvReac MUSCLE PAIN Verified 12/03/24 09:53 Inhibitor [Celfedi-Mbt-Nvj Reductase Inhibitor] Surgical - Exam Osteopathic Statement: *. No significant issues noted on an osteopathic structural exam other than those noted in the History and Physical/Consult. Vital Signs Temp Pulse Resp BP Pulse Ox 97.3 F L 72 18 162/79 95 12/03/24 03:55 12/03/24 03:55 12/03/24 03:55 12/03/24 03:55 12/03/24 03:55 - General well nourished, no distress - ENT no hearing loss - Neck trachea midline - Abdomen Soft, tenderness to palpation in right upper quadrant, nondistended, no rebound or guarding - Psychiatric oriented to time, oriented to person, oriented to place Results - Labs 12/03/24 04:12 12/03/24 04:12 Abnormal Lab Results - Last 24 Hours (Table) 12/03/24 12/03/24 12/03/24 Range/Units 04:12 04:12 06:33 WBC 14.64 H (4.50-10.00) 10*3/uL Immature Gran # 0.06 H (0.00-0.04) 10*3/uL Neutrophils # 10.59 H (1.80-7.70) 10*3/uL Monocytes # 1.21 H (0.20-1.00) 10*3/uL Eosinophils # 0.70 H (0.04-0.35) 10*3/uL Sodium 133 L (137-145) mmol/L Chloride 96 L (98-107) mmol/L BUN 30 H (9-20) mg/dL Glucose 149 H (74-99) mg/dL Total Bilirubin 1.4 H (0.2-1.3) mg/dL AST 61 H (17-59) U/L ALT 63 H (4-49) U/L Alkaline Phosphatase 178 H (38-126) U/L Lipase 17 L (23-300) U/L Urine Protein Trace H (Negative) Urine Ketones 1+ H (Negative) Diabetes panel 12/03/24 Range/Units 04:12 Sodium 133 L (137-145) mmol/L Potassium 4.2 (3.5-5.1) mmol/L Chloride 96 L (98-107) mmol/L Carbon Dioxide 25 (22-30) mmol/L BUN 30 H (9-20) mg/dL Creatinine 1.09 (0.66-1.25) mg/dL Glucose 149 H (74-99) mg/dL Calcium 8.8 (8.4-10.2) mg/dL AST 61 H (17-59) U/L ALT 63 H (4-49) U/L Alkaline Phosphatase 178 H (38-126) U/L Total Protein 6.4 (6.3-8.2) g/dL Albumin 3.8 (3.5-5.0) g/dL Calcium panel 12/03/24 Range/Units 04:12 Calcium 8.8 (8.4-10.2) mg/dL Albumin 3.8 (3.5-5.0) g/dL Pituitary panel 12/03/24 Range/Units 04:12 Sodium 133 L (137-145) mmol/L Potassium 4.2 (3.5-5.1) mmol/L Chloride 96 L (98-107) mmol/L Carbon Dioxide 25 (22-30) mmol/L BUN 30 H (9-20) mg/dL Creatinine 1.09 (0.66-1.25) mg/dL Glucose 149 H (74-99) mg/dL Calcium 8.8 (8.4-10.2) mg/dL Adrenal panel 12/03/24 Range/Units 04:12 Sodium 133 L (137-145) mmol/L Potassium 4.2 (3.5-5.1) mmol/L Chloride 96 L (98-107) mmol/L Carbon Dioxide 25 (22-30) mmol/L BUN 30 H (9-20) mg/dL Creatinine 1.09 (0.66-1.25) mg/dL Glucose 149 H (74-99) mg/dL Calcium 8.8 (8.4-10.2) mg/dL Total Bilirubin 1.4 H (0.2-1.3) mg/dL AST 61 H (17-59) U/L ALT 63 H (4-49) U/L Alkaline Phosphatase 178 H (38-126) U/L Total Protein 6.4 (6.3-8.2) g/dL Albumin 3.8 (3.5-5.0) g/dL Assessment and Plan Plan: 69-year-old male with likely acute cholecystitis. He was started on IV antibiotics and we will continue this. Continue n.p.o. status at this time. Will recheck laboratory values. Plan is for robotic cholecystectomy. I did discuss with the patient that if bilirubin levels continue to rise, we will p erform MRCP prior to any surgical intervention. Otherwise, plan for or tomorrow morning.
[2024-12-03 15:39] LABS: ALT 60 U/L (4-49); AST 48 U/L (17-59); African American GFR (CKD) >90 (>60 ml/min/1.73 sqM); Albumin 3.2 g/dL (3.5-5.0); Albumin/Globulin Ratio 1.3; Alkaline Phosphatase 162 U/L (38-126); Anion Gap 8 mmol/L; Blood Urea Nitrogen 22 mg/dL (9-20); Calcium 8.4 mg/dL (8.4-10.2); Carbon Dioxide 27 mmol/L (22-30); Chloride 99 mmol/L (98-107); Globulin 2.5 g/dL; Glucose 120 mg/dL (74-99); Non-African American GFR(CKD) 89 (>60 ml/min/1.73 sqM); Potassium 4.3 mmol/L (3.5-5.1); Sodium 134 mmol/L (137-145); Total Protein 5.7 g/dL (6.3-8.2)
[2024-12-03] MEDS: AMPICILLIN-SULBACTAM 3 GM in SODIUM CHLORIDE 0.9% 100 ML IVPB SCH (16:12)
[2024-12-03] MEDS: MORPHINE SULFATE 4 MG/ML SYRINGE IV PRN (18:18)
[2024-12-03] MEDS ORDERED: DEXTROSE 50% SYRINGE 50 ML IVP PRN ×2 (19:29)
[2024-12-03] MEDS: INSULIN LISPRO (HumaLOG) 100 UNIT/ML 10 mL VL SQ SCH (20:51)
[2024-12-03 20:52] LABS: Glucose,Whole Blood 122 mg/dL (70-110)
[2024-12-03] MEDS: PANTOPRAZOLE 40 MG/10 ML VIAL IVP SCH (20:55)
[2024-12-03] MEDS: amLODIPine 10 MG TAB PO SCH (20:55)
[2024-12-04 05:39] LABS: Glucose,Whole Blood 123 mg/dL (70-110)
[2024-12-04] MEDS ORDERED: MIDAZOLAM 2 MG/2 ML VIAL ONE (09:09)
[2024-12-04] MEDS ORDERED: SUCCINYLCHOLINE CHLORIDE 200 MG/10 ML VIAL IV ONE (09:09)
[2024-12-04] MEDS ORDERED: ONDANSETRON 4 MG/2 ML VIAL ONE (09:09)
[2024-12-04] MEDS ORDERED: ROCURONIUM 10 MG/ML (5 ML VIAL) IV ONE (09:09)
[2024-12-04] MEDS ORDERED: PHENYLEPHRINE-0.9% NACL SYG 1,000 MCG/10 ML SYRINGE ONE (09:09)
[2024-12-04] MEDS ORDERED: LIDOCAINE 1% INJ 10MG/ML (20 ML MDV) ONE (09:09)
[2024-12-04] MEDS ORDERED: fentaNYL (PF) 50 MCG/ML 2 ML AMP ONE (09:09)
[2024-12-04] MEDS ORDERED: NEOSTIGMINE 1 MG/ML 10 ML VIAL ONE (09:09)
[2024-12-04] MEDS ORDERED: KETOROLAC 15 MG/ML 1 ML VIAL ONE (09:09)
[2024-12-04] MEDS ORDERED: GLYCOPYRROLATE 0.2 MG/ML 2 ML VIAL ONE (09:09)
[2024-12-04] MEDS ORDERED: PROPOFOL 10 MG/ML 20 ML VIAL IV ONE (09:09)
[2024-12-04] MEDS: SODIUM CHLORIDE 0.9% 1,000 ML IV ONE ×2 (09:11→10:58)
[2024-12-04] MEDS: LIDOCAINE 1%-EPI 1:100,000 20 ML VIAL SQ ONE (09:44)
[2024-12-04 11:52] LABS: Glucose,Whole Blood 146 mg/dL (70-110)
--- NOTE | 2024-12-04 12:01 | P.OP ---
Date of Procedure: 12/04/24 Preoperative Diagnosis: Acute cholecystitis Postoperative Diagnosis: Acute gangrenous cholecystitis with perforated gallbladder Procedure(s) Performed: Robotic cholecystectomy LOUISE drain placement Anesthesia: MAYCO Surgeon: Jono Rose Pathology: other (Gallbladder) Condition: stable Disposition: floor Indications for Procedure: 69-year-old male presented to the emergency department with complaint of abdominal pain. On workup, there is concern for acute cholecystitis. Bili's were initially elevated and did normalize. Patient started on IV antibiotics. Plan for robotic cholecystectomy. Operative Findings: Gangrenous gallbladder with perforation Description of Procedure: Patient was brought to the operating suite and placed in supine position on the operating table. Sedation was provided by anesthesia and the patient underwent endotracheal intubation. The patient was then prepped and draped in regular sterile fashion. An infraumbilical incision was made and dissection was carried to the fascia. The fascia was incised and an 8 mm trocar was placed. Pneumoperitoneum was achieved. The patient was then placed in appropriate position. 2 additional 8 mm trocars were placed in the right upper quadrant and 1 in the left upper quadrant. Robot was then docked. Significant inflammation noted in the right upper quadrant. The omentum was densely adhered to the gallbladder and slowly peeled away. The gallbladder was then grasped and retracted superiorly and laterally. It was noted that patient had bile spillage from perforation from the gallbladder that appeared gangrenous and necrotic. Some stones were noted outside of the lumen of the gallbladder. Dissection was carried along the infundibulum however, significant inflammatory changes were noted and anatomy was difficult to delineate. ICG was used to attempt to evalu ate anatomy, however due to cystic duct obstruction, ICG was not within the gallbladder lumen. Decision was made to dissect the gallbladder from the top down and this was performed using cautery. During the cautery dissection it was also clear that the necrosis of the gallbladder did occur against the liver bed with significant necrotic tissue in the gallbladder fossa. 1 dissection was carried towards the infundibulum, decision was made to staple across the infundibulum just proximal to the cystic duct as the cystic duct showed significant inflammation. Stapler was fired and the staple line was evaluated. There was some concern of unhealthy tissue along the staple line and the staple line was imbricated with a running 2 oh V-Loc suture. The gallbladder was then placed in an Endo Catch bag and removed from the abdomen from the infraumbilical incision site. Copious amounts of irrigation placed in the right upper quadrant and suctioned. Hemostasis was noted to be maintained. No bile leakage was noted. The infraumbilical fascial incision was closed under direct visualization using an 0 Vicryl suture and Enrique-Yadi device. Pneumoperitoneum was released. All ports removed from the abdomen. All port sites were closed with 4-0 Vicryl subcuticular suture. Sterile dressing was applied. The patient was taken to postanesthesia care unit in stable condition. Sponge and instrument count correct x 2.
[2024-12-04] MEDS ORDERED: DEXTROSE 50% SYRINGE 50 ML IVP PRN ×2 (15:29)
--- NOTE | 2024-12-04 15:31 | P.CONS ---
History of Present Illness - Reason for Consult Consult date: 12/04/24 Medical management - History of Present Illness History of present illness; patient 69-year-old gentleman with past medical history significant for hypertension who presents the ER because of abdominal pain. Patient stated he was sleeping when he was waking up right upper quadrant pain. Abdominal pain was sharp, intermittent, stabbing in nature, aggravated By taking deep breaths or by movement, no relieving factor associated with this abdominal pain. Patient denied any nausea or vomiting. Did mention that he was having some abdominal pain couple weeks ago as well. There was no complaint of fever or chills. Because abdominal pain, patient came to the ER, patient did have a recent ultrasound abdomen done that showed patient to have acute cholecystitis, results of which were reviewed with the ER physician and the surgeon at the time of arrival to the ER. Initial lab work done in the ER showed WBC 14.64, hemoglobin 15, platelet count 198, sodium 133, potassium 4.2, BUN 30, creatinine 1.09, glucose 149, HbA1c 6.6, bilirubin 1.4, AST 61, T3 alk phos 178 UA negative for infection CT abdominal pelvis done showed showed findings suspicious for colitis within the right upper quadrant at the hepatic flexure with diffuse thickening within the colon with adjacent inflammatory change. Predominant inflammatory change noted extending near the gallbladder with gallbladder wall thickening Patient was admitted to surgery service. Patient underwent laparoscopic cholecystectomy, postoperatively internal medicine team were consulted for medical REVIEW OF SYSTEMS: CONSTITUTIONAL: No fever, no malaise, no fatigue. HEENT: No recent visual problems or hearing problems. Denied any sore throat. CARDIOVASCULAR: No chest pain, orthopnea, PND, no palpitations, no syncope. PULMONARY: No shortness of breath, no cough, no hemoptysis. GASTROINTESTINAL: As mentioned above NEUROLOGICAL: No headaches, no weakness, no numbness. HEMATOLOGICAL: Denies any bleeding or petechiae. GENITOURINARY: Denies any burning micturition, frequency, or urgency. MUSCULOSKELETAL/RHEUMATOLOGICAL: Denies any joint pain, swelling, or any muscle pain. ENDOCRINE: Denies any polyuria or polydipsia. The rest of the 14-point review of systems is negative. PHYSICAL EXAMINATION: GENERAL: The patient is alert and oriented x3, not in any acute distress. Well developed, well nourished. HEENT: Pupils are round and equally reacting to light. EOMI. No scleral icterus. No conjunctival pallor. Normocephalic, atraumatic. No pharyngeal erythema. No thyromegaly. CARDIOVASCULAR: S1 and S2 present. No murmurs, rubs, or gallops. PULMONARY: Chest is clear to auscultation, no wheezing or crackles. ABDOMEN: Tender, laparoscopic surgical incision seen, drain in place MUSCULOSKELETAL: No joint swelling or deformity. EXTREMITIES: No cyanosis, clubbing, or pedal edema. NEUROLOGICAL: Gross neurological examination did not reveal any focal deficits. SKIN: No rashes. Assessment and plan Acute gangrenous cholecystitis with perforated gallbladder status post laparoscopic cholecystectomy Abdominal pain Acute transaminitis Hypertension History of hyperlipidemia History of diabetes mellitus Monitor vital signs Monitor CBC Monitor CMP status post robotic cholecystectomy with LOUISE drain placed Continue pain management Continue IV antibiotics per surgery Continue clear liquid diet, advance as tolerated Hold statin Ordered blood glucose monitoring, start sliding scale insulin Resume amlodipine, hold olmesartan for now Resume home med General Surgery following Labs and medication were reviewed.. Continue same treatment. Continue with symptomatic treatment. Resume home medication. Monitor labs and vitals. DVT and GI prophylaxis. Further recommendations as per clinical course of the patient Dictation was produced using [employer] dictation software. please excuse any grammatical, word or spelling errors. Past Medical History Past Medical History: GERD/Reflux, Hyperlipidemia, Hypertension Additional Past Medical History / Comment(s): HX OF COLON POLYP History of Any Multi-Drug Resistant Organisms: None Reported Past Surgical History: Orthopedic Surgery Additional Past Surgical History / Comment(s): COLONOSCOPY, July 2022 Hip replacement Additional Past Anesthesia/Blood Transfusion Reaction / Comm: NO GENERAL ANESTHESIA EVER Past Psychological History: No Psychological Hx Reported Smoking Status: Never smoker Past Alcohol Use History: None Reported Past Drug Use History: None Reported - Past Family History Brother(s) Family Medical History: Cancer Additional Family Medical History / Comment(s): COLON Medications and Allergies Home Medications Medication Instructions Recorded Confirmed Type Magnesium 400 mg PO DAILY 08/21/23 12/03/24 History Aspirin EC [Ecotrin Low Dose] 81 mg PO DAILY 12/03/24 12/03/24 History Ezetimibe [Zetia] 10 mg PO DAILY 12/03/24 12/03/24 History Olmesartan Medoxomil [Benicar] 40 mg PO DAILY 12/03/24 12/03/24 History Omeprazole 20 mg PO AC-BRKFST 12/03/24 12/03/24 History Rosuvastatin [Crestor] 20 mg PO DAILY 12/03/24 12/03/24 History amLODIPine [Norvasc] 10 mg PO DAILY 12/03/24 12/03/24 History metFORMIN HCL [Glucophage] 500 mg PO BID-W/MEALS 12/03/24 12/03/24 History Allergies Allergy/AdvReac Type Severity Reaction Status Date / Time [id number] Reductase AdvReac MUSCLE PAIN Verified 12/03/24 09:53 Inhibitor [Pyznpio-Qge-Jpc Reductase Inhibitor] Physical Exam Vitals: Vital Signs Temp Pulse Pulse Resp BP Pulse Ox 12/04/24 13:57 63 133/79 95 12/04/24 13:27 63 121/75 94 L 12/04/24 13:13 67 124/81 93 L 12/04/24 12:58 67 125/72 94 L 12/04/24 12:42 67 126/74 93 L 12/04/24 12:27 97.9 F 70 18 131/78 92 L 12/04/24 12:11 66 14 126/73 92 L 12/04/24 11:56 70 16 133/82 95 12/04/24 11:41 97.5 F L 77 16 132/79 95 12/04/24 07:23 98.2 F 67 18 123/74 95 12/03/24 18:40 98.8 F 69 18 137/78 95 Intake and Output 12/04/24 12/04/24 12/04/24 06:59 14:59 22:59 Intake Total 1380 Output Total 300 60 Balance 1080 -60 Intake: IV 1200 Oral 180 Output: Drainage 60 Right Lower Abdomen 60 Estimated Blood Loss 300 Other: Voiding Method Toilet # Voids 4 Results CBC & Chem 7: 12/03/24 04:12 12/03/24 15:14 Labs: Abnormal Lab Results - Last 24 Hours (Table) 12/03/24 12/03/24 12/03/24 Range/Units 04:12 15:14 20:50 Sodium 134 L (137-145) mmol/L BUN 22 H (9-20) mg/dL Glucose 120 H (74-99) mg/dL POC Glucose (mg/dL) 122 H (70-110) mg/dL Hemoglobin A1c 6.6 H (<=6.0) % ALT 60 H (4-49) U/L Alkaline Phosphatase 162 H (38-126) U/L Total Protein 5.7 L (6.3-8.2) g/dL Albumin 3.2 L (3.5-5.0) g/dL 12/04/24 12/04/24 Range/Units 05:37 11:49 Sodium (137-145) mmol/L BUN (9-20) mg/dL Glucose (74-99) mg/dL POC Glucose (mg/dL) 123 H 146 H (70-110) mg/dL Hemoglobin A1c (<=6.0) % ALT (4-49) U/L Alkaline Phosphatase (38-126) U/L Total Protein (6.3-8.2) g/dL Albumin (3.5-5.0) g/dL
[2024-12-04] MEDS: HYDROcodone/APAP 5-325MG 1 EACH TAB PO PRN (15:41)
[2024-12-04 17:15] LABS: Glucose,Whole Blood 178 mg/dL (70-110)
[2024-12-04] MEDS: INDOCYANINE GREEN 25 MG VIAL IV STA (17:20)
[2024-12-04 19:55] LABS: Glucose,Whole Blood 189 mg/dL (70-110)
[2024-12-05 06:01] LABS: Glucose,Whole Blood 148 mg/dL (70-110)
[2024-12-05] MEDS: EZETIMIBE 10 MG TAB PO SCH (07:49)
[2024-12-05] MEDS: MAGNESIUM OXIDE 400 MG TAB PO SCH (07:49)
--- NOTE | 2024-12-05 08:50 | P.PN ---
Subjective Progress Note Date: 12/05/24 Patient seen and examined at bedside. Complains of some abdominal discomfort. Unable to have flatus. No nausea and has tolerated clear liquid diet. LOUISE drain with serosanguineous output at this time. Objective - Vital Signs Vital signs: Vital Signs Temp 98 F 12/05/24 06:55 Pulse 72 12/05/24 06:55 Resp 20 12/05/24 06:55 BP 128/64 12/05/24 06:55 Pulse Ox 94 L 12/05/24 06:55 FiO2 Intake & Output 12/04/24 12/05/24 12/05/24 18:59 06:59 18:59 Intake Total 2211 Output Total 380 65 Balance 1831 -65 Intake: IV 1200 Oral 1011 Output: Drainage 80 65 Right Lower Abdomen 80 65 Estimated Blood Loss 300 Other: Voiding Method Toilet Toilet # Voids 0 6 - Constitutional General appearance: Present: cooperative - Gastrointestinal Gastrointestinal Comment(s): Soft, appropriate tenderness, nondistended, no rebound or guarding - Psychiatric Psychiatric: Present: A&O x's 3 - Labs CBC & Chem 7: 12/03/24 04:12 12/03/24 15:14 Labs: Abnormal Lab Results - Last 24 Hours (Table) 12/03/24 12/04/24 12/04/24 Range/Units 04:12 11:49 17:13 POC Glucose (mg/dL) 146 H 178 H (70-110) mg/dL Hemoglobin A1c 6.6 H (<=6.0) % 12/04/24 12/05/24 Range/Units 19:53 05:58 POC Glucose (mg/dL) 189 H 148 H (70-110) mg/dL Hemoglobin A1c (<=6.0) % Microbiology - Last 24 Hours (Table) 12/03/24 07:27 Blood Culture - Preliminary Blood Assessment and Plan Plan: Postoperative day #1, robotic cholecystectomy with LOUISE drain placement secondary to gangrenous cholecystitis -Decrease IV fluids - Continue IV antibiotics - Continue LOUISE drain - Continue clear liquid diet for now - Continue pain regimen - Increase activity - Continue incentive spirometry - I did discuss possibility of delayed bile leak with the patient. Will continue to monitor LOUISE output
[2024-12-05 08:54] LABS: Basophils # (A) 0.05 X 10*3/uL (0.00-0.10); Basophils % (A) 0.4 %; Eosinophils # (A) 0.26 X 10*3/uL (0.04-0.35); Eosinophils % (A) 2.2 %; HCT 35.8 % (39.6-50.0); HGB 11.8 g/dL (13.0-17.0); Immature Grans, Automated 0.70 %; Lymphocytes # (A) 1.39 X 10*3/uL (0.90-5.00); Lymphocytes % (A) 11.9 %; MCH 29.9 pg (27.0-32.0); MCHC 33.0 g/dL (32.0-37.0); MCV 90.9 FL (80.0-97.0); Monocytes # (A) 1.23 X 10*3/uL (0.20-1.00); Monocytes % (A) 10.5 %; NRBC Per 100 WBC 0 X 10*3/uL (0.00-0.01); Neutrophils # (A) 8.71 X 10*3/uL (1.80-7.70); Neutrophils % (A) 74.3 %; Platelet Count 196 X 10*3/uL (140-440); RBC 3.94 X 10*6/uL (4.40-5.60); RDW 13.8 % (11.5-14.5); WBC 11.72 X 10*3/uL (4.50-10.00)
[2024-12-05 09:00] LABS: BUN/Creat Ratio 17.50 Ratio (12.00-20.00); Blood Urea Nitrogen 14.0 mg/dL (9.0-27.0); Glucose 157 mg/dL (70-110)
[2024-12-05 09:01] LABS: ALT 66 U/L (10-49); AST 51 U/L (14-35); Albumin 3.0 g/dL (3.8-4.9); Albumin/Globulin Ratio 1.58 Ratio (1.60-3.17); Alkaline Phosphatase 159 U/L (41-126); Anion Gap 11.30 mmol/L (4.00-12.00); Calcium 7.2 mg/dL (8.7-10.3); Carbon Dioxide 21.7 mmol/L (21.6-31.8); Chloride 101 mmol/L (96-109); Globulin 1.9 g/dL (1.6-3.3); Potassium 4.3 mmol/L (3.5-5.5); Sodium 134 mmol/L (135-145); Total Protein 4.9 g/dL (6.2-8.2)
[2024-12-05] MEDS: SIMETHICONE 40 MG/0.6 ML DROPS 2,000 MG/30 ML BOTTLE PO SCH (10:45)
[2024-12-05 12:07] LABS: Glucose,Whole Blood 150 mg/dL (70-110)
--- NOTE | 2024-12-05 13:48 | P.PN ---
Subjective History of present illness; patient 69-year-old gentleman with past medical history significant for hypertension who presents the ER because of abdominal pain. Patient stated he was sleeping when he was waking up right upper quadrant pain. Abdominal pain was sharp, intermittent, stabbing in nature, aggravated By taking deep breaths or by movement, no relieving factor associated with this abdominal pain. Patient denied any nausea or vomiting. Did mention that he was having some abdominal pain couple weeks ago as well. There was no complaint of fever or chills. Because abdominal pain, patient came to the ER, patient did have a recent ultrasound abdomen done that showed patient to have acute cholecystitis, results of which were reviewed with the ER physician and the surgeon at the time of arrival to the ER. Initial lab work done in the ER showed WBC 14.64, hemoglobin 15, platelet count 198, sodium 133, potassium 4.2, BUN 30, creatinine 1.09, glucose 149, HbA1c 6.6, bilirubin 1.4, AST 61, T3 alk phos 178 UA negative for infection CT abdominal pelvis done showed showed findings suspicious for colitis within the right upper quadrant at the hepatic flexure with diffuse thickening within the colon with adjacent inflammatory change. Predominant inflammatory change noted extending near the gallbladder with gallbladder wall thickening Patient was admitted to surgery service. Patient underwent laparoscopic cholecystectomy, postoperatively internal medicine team were consulted for medical 12/05/2024 Patient is abdomen still distended but does have bowel sounds did not pass gas yet. Patient blood pressure and vitals are stable patient had mild crackles today morning IV fluids were discontinued. Patient was started on a clear liquid diet today patient is complaining of some sore redness. Surgical drain is clearing up. PHYSICAL EXAMINATION: GENERAL: The patient is alert and oriented x3, not in any acute distress. Well developed, well nourished. HEENT: Pupils are round and equally reacting to light. EOMI. No scleral icterus. No conjunctival pallor. Normocephalic, atraumatic. No pharyngeal erythema. No thyromegaly. CARDIOVASCULAR: S1 and S2 present. No murmurs, rubs, or gallops. PULMONARY: Chest is clear to auscultation, no wheezing or crackles. ABDOMEN: Tender, laparoscopic surgical incision seen, drain in place MUSCULOSKELETAL: No joint swelling or deformity. EXTREMITIES: No cyanosis, clubbing, or pedal edema. NEUROLOGICAL: Gross neurological examination did not reveal any focal deficits. SKIN: No rashes. Assessment and plan Acute gangrenous cholecystitis with perforated gallbladder status post laparoscopic cholecystectomy Abdominal pain Acute transaminitis Hypertension History of hyperlipidemia History of diabetes mellitus Monitor vital signs Monitor CBC Monitor CMP status post robotic cholecystectomy with LOUISE drain placed Continue pain management Continue IV antibiotics per surgery patient is on Unasyn Continue clear liquid diet, advance as tolerated Hold statin Ordered blood glucose monitoring, start sliding scale insulin Resume amlodipine, hold olmesartan for now Resume home med General Surgery following Labs and medication were reviewed.. Continue same treatment. Monitor labs and vitals. DVT and GI prophylaxis. Further recommendations as per clinical course of the patient Objective - Vital Signs Vital signs: Vital Signs Temp 98 F 12/05/24 06:55 Pulse 72 12/05/24 06:55 Resp 20 12/05/24 06:55 BP 128/64 12/05/24 06:55 Pulse Ox 94 L 12/05/24 06:55 FiO2 Intake & Output 12/04/24 12/05/24 12/05/24 18:59 06:59 18:59 Intake Total 2211 Output Total 380 65 Balance 1831 -65 Intake: IV 1200 Oral 1011 Output: Drainage 80 65 Right Lower Abdomen 80 65 Estimated Blood Loss 300 Other: Voiding Method Toilet Toilet Toilet # Voids 0 6 - Labs CBC & Chem 7: 12/05/24 04:56 12/05/24 04:56 Labs: Abnormal Lab Results - Last 24 Hours (Table) 12/04/24 12/04/24 12/05/24 Range/Units 17:13 19:53 04:56 WBC (4.50-10.00) X 10*3/uL RBC (4.40-5.60) X 10*6/uL Hgb (13.0-17.0) g/dL Hct (39.6-50.0) % Immature Gran # (0.00-0.04) X 10*3/uL Neutrophils # (1.80-7.70) X 10*3/uL Monocytes # (0.20-1.00) X 10*3/uL Sodium (135-145) mmol/L Glucose (70-110) mg/dL POC Glucose (mg/dL) 178 H 189 H (70-110) mg/dL Hemoglobin A1c 6.5 H (<=6.0) % Calcium (8.7-10.3) mg/dL AST (14-35) U/L ALT (10-49) U/L Alkaline Phosphatase (41-126) U/L Total Protein (6.2-8.2) g/dL Albumin (3.8-4.9) g/dL Albumin/Globulin Ratio (1.60-3.17) Ratio 12/05/24 12/05/24 12/05/24 Range/Units 04:56 04:56 05:58 WBC 11.72 H (4.50-10.00) X 10*3/uL RBC 3.94 L (4.40-5.60) X 10*6/uL Hgb 11.8 L (13.0-17.0) g/dL Hct 35.8 L (39.6-50.0) % Immature Gran # 0.08 H (0.00-0.04) X 10*3/uL Neutrophils # 8.71 H (1.80-7.70) X 10*3/uL Monocytes # 1.23 H (0.20-1.00) X 10*3/uL Sodium 134 L (135-145) mmol/L Glucose 157 H (70-110) mg/dL POC Glucose (mg/dL) 148 H (70-110) mg/dL Hemoglobin A1c (<=6.0) % Calcium 7.2 L (8.7-10.3) mg/dL AST 51 H (14-35) U/L ALT 66 H (10-49) U/L Alkaline Phosphatase 159 H (41-126) U/L Total Protein 4.9 L (6.2-8.2) g/dL Albumin 3.0 L (3.8-4.9) g/dL Albumin/Globulin Ratio 1.58 L (1.60-3.17) Ratio 12/05/24 Range/Units 12:05 WBC (4.50-10.00) X 10*3/uL RBC (4.40-5.60) X 10*6/uL Hgb (13.0-17.0) g/dL Hct (39.6-50.0) % Immature Gran # (0.00-0.04) X 10*3/uL Neutrophils # (1.80-7.70) X 10*3/uL Monocytes # (0.20-1.00) X 10*3/uL Sodium (135-145) mmol/L Glucose (70-110) mg/dL POC Glucose (mg/dL) 150 H (70-110) mg/dL Hemoglobin A1c (<=6.0) % Calcium (8.7-10.3) mg/dL AST (14-35) U/L ALT (10-49) U/L Alkaline Phosphatase (41-126) U/L Total Protein (6.2-8.2) g/dL Albumin (3.8-4.9) g/dL Albumin/Globulin Ratio (1.60-3.17) Ratio Microbiology - Last 24 Hours (Table) 12/03/24 07:27 Blood Culture - Preliminary Blood
[2024-12-05 17:07] LABS: Glucose,Whole Blood 132 mg/dL (70-110)
[2024-12-05 20:19] LABS: Glucose,Whole Blood 170 mg/dL (70-110)
[2024-12-06 06:03] LABS: Glucose,Whole Blood 152 mg/dL (70-110)
[2024-12-06] MEDS ORDERED: NON FORMULARY DRUG (Omeprazole [Omeprazole] 20 MG Capsule.Dr) PO SCH (07:30)
[2024-12-06 08:26] LABS: Basophils # (A) 0.08 X 10*3/uL (0.00-0.10); Basophils % (A) 0.8 %; Eosinophils # (A) 0.47 X 10*3/uL (0.04-0.35); Eosinophils % (A) 4.8 %; HCT 41.4 % (39.6-50.0); HGB 13.7 g/dL (13.0-17.0); Immature Grans, Automated 0.80 %; Lymphocytes # (A) 1.37 X 10*3/uL (0.90-5.00); Lymphocytes % (A) 14.0 %; MCH 30.0 pg (27.0-32.0); MCHC 33.1 g/dL (32.0-37.0); MCV 90.8 FL (80.0-97.0); Monocytes # (A) 0.84 X 10*3/uL (0.20-1.00); Monocytes % (A) 8.6 %; NRBC Per 100 WBC 0 X 10*3/uL (0.00-0.01); Neutrophils # (A) 6.95 X 10*3/uL (1.80-7.70); Neutrophils % (A) 71.0 %; Platelet Count 253 X 10*3/uL (140-440); RBC 4.56 X 10*6/uL (4.40-5.60); RDW 13.8 % (11.5-14.5); WBC 9.79 X 10*3/uL (4.50-10.00)
[2024-12-06 08:55] LABS: Anion Gap 10.50 mmol/L (4.00-12.00); BUN/Creat Ratio 12.12 Ratio (12.00-20.00); Blood Urea Nitrogen 9.7 mg/dL (9.0-27.0); Carbon Dioxide 24.5 mmol/L (21.6-31.8); Chloride 99 mmol/L (96-109); Glucose 156 mg/dL (70-110); Potassium 4.3 mmol/L (3.5-5.5); Sodium 134 mmol/L (135-145)
[2024-12-06 08:56] LABS: ALT 72 U/L (10-49); AST 44 U/L (14-35); Albumin 3.4 g/dL (3.8-4.9); Albumin/Globulin Ratio 1.62 Ratio (1.60-3.17); Alkaline Phosphatase 198 U/L (41-126); Calcium 7.8 mg/dL (8.7-10.3); Globulin 2.1 g/dL (1.6-3.3); Total Protein 5.5 g/dL (6.2-8.2)
[2024-12-06 12:30] LABS: Glucose,Whole Blood 133 mg/dL (70-110)
--- NOTE | 2024-12-06 12:44 | P.PN ---
Subjective History of present illness; patient 69-year-old gentleman with past medical history significant for hypertension who presents the ER because of abdominal pain. Patient stated he was sleeping when he was waking up right upper quadrant pain. Abdominal pain was sharp, intermittent, stabbing in nature, aggravated By taking deep breaths or by movement, no relieving factor associated with this abdominal pain. Patient denied any nausea or vomiting. Did mention that he was having some abdominal pain couple weeks ago as well. There was no complaint of fever or chills. Because abdominal pain, patient came to the ER, patient did have a recent ultrasound abdomen done that showed patient to have acute cholecystitis, results of which were reviewed with the ER physician and the surgeon at the time of arrival to the ER. Initial lab work done in the ER showed WBC 14.64, hemoglobin 15, platelet count 198, sodium 133, potassium 4.2, BUN 30, creatinine 1.09, glucose 149, HbA1c 6.6, bilirubin 1.4, AST 61, T3 alk phos [address] negative for infection CT abdominal pelvis done showed showed findings suspicious for colitis within the right upper quadrant at the hepatic flexure with diffuse thickening within the colon with adjacent inflammatory change. Predominant inflammatory change noted extending near the gallbladder with gallbladder wall thickening Patient was admitted to surgery service. Patient underwent laparoscopic cholecystectomy, postoperatively internal medicine team were consulted for medical 12/05/2024 Patient is abdomen still distended but does have bowel sounds did not pass gas yet. Patient blood pressure and vitals are stable patient had mild crackles today morning IV fluids were discontinued. Patient was started on a clear liquid diet today patient is complaining of some sore redness. Surgical drain is clearing up. 12/06 Patient went walking in the room with no problem LOUISE drain in place with little discharge Patient remains on liquid diet No abdominal pain He is passing gas. Bowel movement Remains on Unasyn Labs showed mild transaminitis with normal bilirubin Objective - Vital Signs Vital signs: Vital Signs Temp 97.5 F L 12/06/24 07:24 Pulse 83 12/06/24 07:24 Resp 20 12/06/24 07:24 BP 156/80 12/06/24 07:24 Pulse Ox 93 L 12/06/24 07:24 FiO2 Intake & Output 12/05/24 12/06/24 12/06/24 18:59 06:59 18:59 Intake Total 420 Output Total 30 20 Balance 390 -20 Intake: Oral 420 Output: Drainage 30 20 Right Lower Abdomen 30 20 Other: Voiding Method Toilet Toilet Toilet # Voids 4 - Exam GENERAL: The patient is alert and oriented x3, not in any acute distress. Well developed, well nourished. HEENT: Pupils are round and equally reacting to light. EOMI. No scleral icterus. No conjunctival pallor. Normocephalic, atraumatic. No pharyngeal erythema. No thyromegaly. CARDIOVASCULAR: S1 and S2 present. No murmurs, rubs, or gallops. PULMONARY: Chest is clear to auscultation, no wheezing , no crackles. -ABDOMEN: Soft, nontender, nondistended, normoactive bowel sounds. No palpable organomegaly. Surgical wound closed with LOUISE drain in place MUSCULOSKELETAL: No joint swelling or deformity. EXTREMITIES: No cyanosis, clubbing, or pedal edema. NEUROLOGICAL: Gross neurological examination did not reveal any focal deficits. SKIN: No rashes. no petechiae. - Labs CBC & Chem 7: 12/06/24 05:25 12/06/24 05:25 Labs: Abnormal Lab Results - Last 24 Hours (Table) 12/05/24 12/05/24 12/06/24 Range/Units 17:05 20:11 05:25 Immature Gran # 0.08 H (0.00-0.04) X 10*3/uL Eosinophils # 0.47 H (0.04-0.35) X 10*3/uL Sodium (135-145) mmol/L Glucose (70-110) mg/dL POC Glucose (mg/dL) 132 H 170 H (70-110) mg/dL Calcium (8.7-10.3) mg/dL AST (14-35) U/L ALT (10-49) U/L Alkaline Phosphatase (41-126) U/L Total Protein (6.2-8.2) g/dL Albumin (3.8-4.9) g/dL 12/06/24 12/06/24 12/06/24 Range/Units 05:25 06:02 12:29 Immature Gran # (0.00-0.04) X 10*3/uL Eosinophils # (0.04-0.35) X 10*3/uL Sodium 134 L (135-145) mmol/L Glucose 156 H (70-110) mg/dL POC Glucose (mg/dL) 152 H 133 H (70-110) mg/dL Calcium 7.8 L (8.7-10.3) mg/dL AST 44 H (14-35) U/L ALT 72 H (10-49) U/L Alkaline Phosphatase 198 H (41-126) U/L Total Protein 5.5 L (6.2-8.2) g/dL Albumin 3.4 L (3.8-4.9) g/dL Microbiology - Last 24 Hours (Table) 12/03/24 07:27 Blood Culture - Preliminary Blood Assessment and Plan Assessment: Acute gangrenous cholecystitis with perforated gallbladder status post laparoscopic cholecystectomy Abdominal pain Acute transaminitis Hypertension History of hyperlipidemia History of diabetes mellitus Plan: Monitor vital signs Monitor CBC Monitor CMP status post robotic cholecystectomy with LOUISE drain placed Continue pain management Continue IV antibiotics per surgery patient is on Unasyn Continue clear liquid diet, advance as tolerated Hold statin Ordered blood glucose monitoring, start sliding scale insulin Resume amlodipine, hold olmesartan for now Resume home med General Surgery following Labs and medication were reviewed.. Continue same treatment. Monitor labs and vitals. DVT and GI prophylaxis. Further recommendations as per clinical course of the patient
--- NOTE | 2024-12-06 14:08 | P.PN ---
Progress Note - Text Progress Note Date: 12/06/24 No acute events overnight. Tolerating CLD. Pain is controlled. Denies fevers, chills, nausea, and vomiting VSS General-NAD CVS-RRR Lungs-NLB Abdomen-soft, NTND, LOUISE-serosang, Incisions C/D/I 69 year old male s/p Robotic Cholecystectomy for Gangrenous Cholecystitis -Advance to Regular Diet -OOB, ambulate, IS -Continue Antibiotics -Monitor LOUISE -AM labs Joesph Gonzalez [facility] [phone]
[2024-12-06 17:25] LABS: Glucose,Whole Blood 134 mg/dL (70-110)
[2024-12-06 20:48] LABS: Glucose,Whole Blood 170 mg/dL (70-110)
[2024-12-07 05:55] LABS: Glucose,Whole Blood 133 mg/dL (70-110)
[2024-12-07 08:39] LABS: Basophils # (A) 0.06 X 10*3/uL (0.00-0.10); Basophils % (A) 0.8 %; Eosinophils # (A) 0.35 X 10*3/uL (0.04-0.35); Eosinophils % (A) 4.4 %; HCT 36.3 % (39.6-50.0); HGB 11.8 g/dL (13.0-17.0); Immature Grans, Automated 0.60 %; Lymphocytes # (A) 1.18 X 10*3/uL (0.90-5.00); Lymphocytes % (A) 14.9 %; MCH 29.4 pg (27.0-32.0); MCHC 32.5 g/dL (32.0-37.0); MCV 90.5 FL (80.0-97.0); Monocytes # (A) 0.68 X 10*3/uL (0.20-1.00); Monocytes % (A) 8.6 %; NRBC Per 100 WBC 0 X 10*3/uL (0.00-0.01); Neutrophils # (A) 5.59 X 10*3/uL (1.80-7.70); Neutrophils % (A) 70.7 %; Platelet Count 274 X 10*3/uL (140-440); RBC 4.01 X 10*6/uL (4.40-5.60); RDW 13.9 % (11.5-14.5); WBC 7.91 X 10*3/uL (4.50-10.00)
[2024-12-07 09:16] LABS: ALT 142 U/L (10-49); AST 138 U/L (14-35); Albumin 3.0 g/dL (3.8-4.9); Albumin/Globulin Ratio 1.58 Ratio (1.60-3.17); Alkaline Phosphatase 512 U/L (41-126); Anion Gap 10.40 mmol/L (4.00-12.00); BUN/Creat Ratio 10.22 Ratio (12.00-20.00); Bilirubin,Unconjugated 0.36 mg/dL (0.20-1.00); Blood Urea Nitrogen 9.2 mg/dL (9.0-27.0); Calcium 7.8 mg/dL (8.7-10.3); Carbon Dioxide 25.6 mmol/L (21.6-31.8); Chloride 101 mmol/L (96-109); Globulin 1.9 g/dL (1.6-3.3); Glucose 149 mg/dL (70-110); Potassium 4.3 mmol/L (3.5-5.5); Sodium 137 mmol/L (135-145); Total Protein 4.9 g/dL (6.2-8.2)
[2024-12-07 12:25] LABS: Glucose,Whole Blood 106 mg/dL (70-110)
--- NOTE | 2024-12-07 13:54 | P.PN ---
Subjective Progress Note Date: 12/07/24 Patient seen and examined at bedside. States that clot was removed from LOUISE and patient had 200 cc of output. It has slowed down over the last 5 hours. Otherwise, no acute events. Denies any pain. States he is feeling well. Objective - Vital Signs Vital signs: Vital Signs Temp 97.8 F 12/07/24 07:22 Pulse 67 12/07/24 07:22 Resp 18 12/07/24 07:22 BP 121/70 12/07/24 07:22 Pulse Ox 96 12/07/24 07:22 FiO2 Intake & Output 12/06/24 12/07/24 12/07/24 18:59 06:59 18:59 Intake Total 240 240 Output Total 20 260 Balance 220 -260 240 Intake: Oral 240 240 Output: Drainage 20 260 Right Lower Abdomen 20 260 Other: Voiding Method Toilet # Voids 1 1 - Constitutional General appearance: Present: cooperative, no acute distress - Gastrointestinal Gastrointestinal Comment(s): Soft, nontender, nondistended, no rebound or guarding, incision sites are healing well, LOUISE drain in place with serosanguineous output - Psychiatric Psychiatric: Present: A&O x's 3 - Labs CBC & Chem 7: 12/07/24 05:30 12/07/24 05:30 Labs: Abnormal Lab Results - Last 24 Hours (Table) 12/06/24 12/06/24 12/07/24 Range/Units 17:23 20:46 05:30 RBC 4.01 L (4.40-5.60) X 10*6/uL Hgb 11.8 L (13.0-17.0) g/dL Hct 36.3 L (39.6-50.0) % Immature Gran # 0.05 H (0.00-0.04) X 10*3/uL BUN/Creatinine Ratio (12.00-20.00) Ratio Glucose (70-110) mg/dL POC Glucose (mg/dL) 134 H 170 H (70-110) mg/dL Calcium (8.7-10.3) mg/dL Conjugated Bilirubin (0.20-0.40) mg/dL AST (14-35) U/L ALT (10-49) U/L Alkaline Phosphatase (41-126) U/L Total Protein (6.2-8.2) g/dL Albumin (3.8-4.9) g/dL Albumin/Globulin Ratio (1.60-3.17) Ratio 12/07/24 12/07/24 Range/Units 05:30 05:55 RBC (4.40-5.60) X 10*6/uL Hgb (13.0-17.0) g/dL Hct (39.6-50.0) % Immature Gran # (0.00-0.04) X 10*3/uL BUN/Creatinine Ratio 10.22 L (12.00-20.00) Ratio Glucose 149 H (70-110) mg/dL POC Glucose (mg/dL) 133 H (70-110) mg/dL Calcium 7.8 L (8.7-10.3) mg/dL Conjugated Bilirubin 0.44 H (0.20-0.40) mg/dL AST 138 H (14-35) U/L ALT 142 H (10-49) U/L Alkaline Phosphatase 512 H (41-126) U/L Total Protein 4.9 L (6.2-8.2) g/dL Albumin 3.0 L (3.8-4.9) g/dL Albumin/Globulin Ratio 1.58 L (1.60-3.17) Ratio Microbiology - Last 24 Hours (Table) 12/03/24 07:27 Blood Culture - Preliminary Blood Assessment and Plan Plan: Postoperative day #3, robotic cholecystectomy with LOUISE drain placement secondary to gangrenous cholecystitis - Continue IV antibiotics - Continue LOUISE drain - Continue diet - Continue pain regimen - Increase activity - Continue incentive spirometry - Likely discharge tomorrow
[2024-12-07 17:11] LABS: Glucose,Whole Blood 172 mg/dL (70-110)
[2024-12-07 19:53] LABS: Glucose,Whole Blood 177 mg/dL (70-110)
[2024-12-07 22:31] LABS: Glucose,Whole Blood 181 mg/dL (70-110)
[2024-12-08 06:19] LABS: Glucose,Whole Blood 150 mg/dL (70-110)
--- NOTE | 2024-12-08 06:42 | P.PN ---
Subjective History of present illness; patient 69-year-old gentleman with past medical history significant for hypertension who presents the ER because of abdominal pain. Patient stated he was sleeping when he was waking up right upper quadrant pain. Abdominal pain was sharp, intermittent, stabbing in nature, aggravated By taking deep breaths or by movement, no relieving factor associated with this abdominal pain. Patient denied any nausea or vomiting. Did mention that he was having some abdominal pain couple weeks ago as well. There was no complaint of fever or chills. Because abdominal pain, patient came to the ER, patient did have a recent ultrasound abdomen done that showed patient to have acute cholecystitis, results of which were reviewed with the ER physician and the surgeon at the time of arrival to the ER. Initial lab work done in the ER showed WBC 14.64, hemoglobin 15, platelet count 198, sodium 133, potassium 4.2, BUN 30, creatinine 1.09, glucose 149, HbA1c 6.6, bilirubin 1.4, AST 61, T3 alk phos 178 UA negative for infection CT abdominal pelvis done showed showed findings suspicious for colitis within the right upper quadrant at the hepatic flexure with diffuse thickening within the colon with adjacent inflammatory change. Predominant inflammatory change noted extending near the gallbladder with gallbladder wall thickening Patient was admitted to surgery service. Patient underwent laparoscopic cholecystectomy, postoperatively internal medicine team were consulted for medical 12/05/2024 Patient is abdomen still distended but does have bowel sounds did not pass gas yet. Patient blood pressure and vitals are stable patient had mild crackles today morning IV fluids were discontinued. Patient was started on a clear liquid diet today patient is complaining of some sore redness. Surgical drain is clearing up. 12/06 Patient went walking in the room with no problem LOUISE drain in place with little discharge Patient remains on liquid diet No abdominal pain He is passing gas. Bowel movement Remains on Unasyn Labs showed mild transaminitis with normal bilirubin 12/07 Patient was awake alert looks comfortable having his meal with good appetite denying any specific worsening abdominal pain. He had good formed bowel movement LOUISE drain is in place and there is more discharge today therefore we are going to monitor him for another 24 hours Possible discharge tomorrow once cleared by surgery team Denies any other new complaints Objective - Vital Signs Vital signs: Vital Signs Temp 97.8 F 12/07/24 07:22 Pulse 67 12/07/24 07:22 Resp 18 12/07/24 07:22 BP 121/70 12/07/24 07:22 Pulse Ox 96 12/07/24 07:22 FiO2 Intake & Output 12/06/24 12/07/24 12/07/24 18:59 06:59 18:59 Intake Total 240 240 Output Total 20 260 Balance 220 -260 240 Intake: Oral 240 240 Output: Drainage 20 260 Right Lower Abdomen 20 260 Other: Voiding Method Toilet # Voids 1 1 - Exam GENERAL: The patient is alert and oriented x3, not in any acute distress. Well developed, well nourished. HEENT: Pupils are round and equally reacting to light. EOMI. No scleral icterus. No conjunctival pallor. Normocephalic, atraumatic. No pharyngeal erythema. No thyromegaly. CARDIOVASCULAR: S1 and S2 present. No murmurs, rubs, or gallops. PULMONARY: Chest is clear to auscultation, no wheezing , no crackles. -ABDOMEN: Soft, nontender, nondistended, normoactive bowel sounds. No palpable organomegaly. Surgical wound closed with LOIUSE drain in place MUSCULOSKELETAL: No joint swelling or deformity. EXTREMITIES: No cyanosis, clubbing, or pedal edema. NEUROLOGICAL: Gross neurological examination did not reveal any focal deficits. SKIN: No rashes. no petechiae. - Labs CBC & Chem 7: 12/07/24 05:30 12/07/24 05:30 Labs: Abnormal Lab Results - Last 24 Hours (Table) 12/06/24 12/06/24 12/07/24 Range/Units 17:23 20:46 05:30 RBC 4.01 L (4.40-5.60) X 10*6/uL Hgb 11.8 L (13.0-17.0) g/dL Hct 36.3 L (39.6-50.0) % Immature Gran # 0.05 H (0.00-0.04) X 10*3/uL BUN/Creatinine Ratio (12.00-20.00) Ratio Glucose (70-110) mg/dL POC Glucose (mg/dL) 134 H 170 H (70-110) mg/dL Calcium (8.7-10.3) mg/dL Conjugated Bilirubin (0.20-0.40) mg/dL AST (14-35) U/L ALT (10-49) U/L Alkaline Phosphatase (41-126) U/L Total Protein (6.2-8.2) g/dL Albumin (3.8-4.9) g/dL Albumin/Globulin Ratio (1.60-3.17) Ratio 12/07/24 12/07/24 Range/Units 05:30 05:55 RBC (4.40-5.60) X 10*6/uL Hgb (13.0-17.0) g/dL Hct (39.6-50.0) % Immature Gran # (0.00-0.04) X 10*3/uL BUN/Creatinine Ratio 10.22 L (12.00-20.00) Ratio Glucose 149 H (70-110) mg/dL POC Glucose (mg/dL) 133 H (70-110) mg/dL Calcium 7.8 L (8.7-10.3) mg/dL Conjugated Bilirubin 0.44 H (0.20-0.40) mg/dL AST 138 H (14-35) U/L ALT 142 H (10-49) U/L Alkaline Phosphatase 512 H (41-126) U/L Total Protein 4.9 L (6.2-8.2) g/dL Albumin 3.0 L (3.8-4.9) g/dL Albumin/Globulin Ratio 1.58 L (1.60-3.17) Ratio Microbiology - Last 24 Hours (Table) 12/03/24 07:27 Blood Culture - Preliminary Blood Assessment and Plan Assessment: Acute gangrenous cholecystitis with perforated gallbladder status post laparoscopic cholecystectomy Abdominal pain Acute transaminitis Hypertension History of hyperlipidemia History of diabetes mellitus Plan: Monitor vital signs Monitor CBC Monitor CMP status post robotic cholecystectomy with LOUISE drain placed Continue pain management Continue IV antibiotics per surgery patient is on Unasyn Continue clear liquid diet, advance as tolerated Hold statin Ordered blood glucose monitoring, start sliding scale insulin Resume amlodipine, hold olmesartan for now Resume home med General Surgery following Labs and medication were reviewed.. Continue same treatment. Monitor labs and vitals. DVT and GI prophylaxis. Further recommendations as per clinical course of the patient
[2024-12-08 07:47] VITALS: BP 144/84; PULSE 57; RESP 18; TEMP 97.6
--- NOTE | 2024-12-08 08:02 | P.DS ---
Providers Date of admission: 12/03/24 07:05 Attending physician: Joesph Gonzalez DO Consults: 12/03/24 07:05 Consult Physician Routine Consulting Provider: Darlin Griggs Reason/Comments: medical management Do you want consulting provider notified?: Yes Primary care physician: Wilfredo Nelson [facility] Hospital Course: 69-year-old male presented to the emergency department with complaint of abdominal pain. He was found to have acute cholecystitis. He was taken operating room for robotic cholecystectomy. He was found to have gangrenous cholecystitis and LOUISE drain was placed. Postoperatively, patient did improve. Output from LOUISE drain is serosanguineous. He is tolerating diet and having bowel function. Surgically stable for discharge with LOUISE drain in place. Outpatient removal of LOUISE drain. All questions answered at bedside. Procedures: Robotic cholecystectomy Patient Condition at Discharge: Fair Plan - Discharge Summary New Discharge Prescriptions: New HYDROcodone/APAP 5-325MG [Basin 5-325] 1 each PO Q6HR PRN #12 tab PRN Reason: Pain Continue metFORMIN HCL [Glucophage] 500 mg PO BID-W/MEALS Rosuvastatin [Crestor] 20 mg PO DAILY Ezetimibe [Zetia] 10 mg PO DAILY Olmesartan Medoxomil [Benicar] 40 mg PO DAILY Magnesium 400 mg PO DAILY amLODIPine [Norvasc] 10 mg PO DAILY Omeprazole 20 mg PO AC-BRKFST Aspirin EC [Ecotrin Low Dose] 81 mg PO DAILY Discharge Medication List Magnesium 400 mg PO DAILY 08/21/23 [History] Aspirin EC [Ecotrin Low Dose] 81 mg PO DAILY 12/03/24 [History] Ezetimibe [Zetia] 10 mg PO DAILY 12/03/24 [History] Olmesartan Medoxomil [Benicar] 40 mg PO DAILY 12/03/24 [History] Omeprazole 20 mg PO AC-BRKFST 12/03/24 [History] Rosuvastatin [Crestor] 20 mg PO DAILY 12/03/24 [History] amLODIPine [Norvasc] 10 mg PO DAILY 12/03/24 [History] metFORMIN HCL [Glucophage] 500 mg PO BID-W/MEALS 12/03/24 [History] HYDROcodone/APAP 5-325MG [Basin 5-325] 1 each PO Q6HR PRN #12 tab 12/07/24 [Rx] Follow up Appointment(s)/Referral(s): Wilfredo Singletary III, MD [Primary Care Provider] - 1-2 days Jono Rose DO [Doctor of Osteopathic Medicine] - 12/14/24 Patient Instructions/Handouts: Laparoscopic Cholecystectomy (DC) Activity/Diet/Wound Care/Special Instructions: No lifting greater than 10 pounds Stay in the low-fat diet Take pain medication as needed Okay to shower Discharge Disposition: HOME SELF-CARE
[2024-12-08 08:05] LABS: Basophils # (A) 0.08 X 10*3/uL (0.00-0.10); Basophils % (A) 1.0 %; Eosinophils # (A) 0.47 X 10*3/uL (0.04-0.35); Eosinophils % (A) 5.9 %; HCT 37.0 % (39.6-50.0); HGB 12.5 g/dL (13.0-17.0); Immature Grans, Automated 1.00 %; Lymphocytes # (A) 1.64 X 10*3/uL (0.90-5.00); Lymphocytes % (A) 20.7 %; MCH 30.8 pg (27.0-32.0); MCHC 33.8 g/dL (32.0-37.0); MCV 91.1 FL (80.0-97.0); Monocytes # (A) 0.71 X 10*3/uL (0.20-1.00); Monocytes % (A) 9.0 %; NRBC Per 100 WBC 0 X 10*3/uL (0.00-0.01); Neutrophils # (A) 4.93 X 10*3/uL (1.80-7.70); Neutrophils % (A) 62.4 %; Platelet Count 296 X 10*3/uL (140-440); RBC 4.06 X 10*6/uL (4.40-5.60); RDW 14.0 % (11.5-14.5); WBC 7.91 X 10*3/uL (4.50-10.00)
[2024-12-08 08:49] LABS: ALT 100 U/L (10-49); AST 47 U/L (14-35); Albumin 3.1 g/dL (3.8-4.9); Albumin/Globulin Ratio 1.72 Ratio (1.60-3.17); Alkaline Phosphatase 420 U/L (41-126); Anion Gap 9.30 mmol/L (4.00-12.00); BUN/Creat Ratio 14.00 Ratio (12.00-20.00); Blood Urea Nitrogen 11.2 mg/dL (9.0-27.0); Calcium 7.8 mg/dL (8.7-10.3); Carbon Dioxide 25.7 mmol/L (21.6-31.8); Chloride 104 mmol/L (96-109); Globulin 1.8 g/dL (1.6-3.3); Glucose 138 mg/dL (70-110); Potassium 4.3 mmol/L (3.5-5.5); Sodium 139 mmol/L (135-145); Total Protein 4.9 g/dL (6.2-8.2)
--- NOTE | 2024-12-08 09:53 | P.PN ---
Subjective History of present illness; patient 69-year-old gentleman with past medical history significant for hypertension who presents the ER because of abdominal pain. Patient stated he was sleeping when he was waking up right upper quadrant pain. Abdominal pain was sharp, intermittent, stabbing in nature, aggravated By taking deep breaths or by movement, no relieving factor associated with this abdominal pain. Patient denied any nausea or vomiting. Did mention that he was having some abdominal pain couple weeks ago as well. There was no complaint of fever or chills. Because abdominal pain, patient came to the ER, patient did have a recent ultrasound abdomen done that showed patient to have acute cholecystitis, results of which were reviewed with the ER physician and the surgeon at the time of arrival to the ER. Initial lab work done in the ER showed WBC 14.64, hemoglobin 15, platelet count 198, sodium 133, potassium 4.2, BUN 30, creatinine 1.09, glucose 149, HbA1c 6.6, bilirubin 1.4, AST 61, T3 alk phos 178 UA negative for infection CT abdominal pelvis done showed showed findings suspicious for colitis within the right upper quadrant at the hepatic flexure with diffuse thickening within the colon with adjacent inflammatory change. Predominant inflammatory change noted extending near the gallbladder with gallbladder wall thickening Patient was admitted to surgery service. Patient underwent laparoscopic cholecystectomy, postoperatively internal medicine team were consulted for medical 12/05/2024 Patient is abdomen still distended but does have bowel sounds did not pass gas yet. Patient blood pressure and vitals are stable patient had mild crackles today morning IV fluids were discontinued. Patient was started on a clear liquid diet today patient is complaining of some sore redness. Surgical drain is clearing up. 12/06 Patient went walking in the room with no problem LOUISE drain in place with little discharge Patient remains on liquid diet No abdominal pain He is passing gas. Bowel movement Remains on Unasyn Labs showed mild transaminitis with normal bilirubin 12/07 Patient was awake alert looks comfortable having his meal with good appetite denying any specific worsening abdominal pain. He had good formed bowel movement LOUISE drain is in place and there is more discharge today therefore we are going to monitor him for another 24 hours Possible discharge tomorrow once cleared by surgery team Denies any other new complaints 12/08 Patient today is doing well Already been discharge He is dressed up sitting in the chair ready to go, at bedside Denies abdominal pain. Tolerates diet. No issues with bowel movement as per patient. No other new complaint Patient states he is ready to go Patient was instructed to follow-up with PCP in 1 week after discharge and he agrees Objective - Vital Signs Vital signs: Vital Signs Temp 97.6 F 12/08/24 07:17 Pulse 57 L 12/08/24 07:17 Resp 18 12/08/24 07:17 BP 144/84 12/08/24 07:17 Pulse Ox 97 12/08/24 07:17 FiO2 Intake & Output 12/07/24 12/08/24 12/08/24 18:59 06:59 18:59 Intake Total 720 Output Total 50 40 Balance 670 -40 Intake: Oral 720 Output: Drainage 50 40 Right Lower Abdomen 50 40 Other: Voiding Method Toilet # Voids 3 3 # Bowel Movements 1 - Exam GENERAL: The patient is alert and oriented x3, not in any acute distress. Well developed, well nourished. HEENT: Pupils are round and equally reacting to light. EOMI. No scleral icterus. No conjunctival pallor. Normocephalic, atraumatic. No pharyngeal erythema. No thyromegaly. CARDIOVASCULAR: S1 and S2 present. No murmurs, rubs, or gallops. PULMONARY: Chest is clear to auscultation, no wheezing , no crackles. -ABDOMEN: Soft, nontender, nondistended, normoactive bowel sounds. No palpable organomegaly. Surgical wound closed with LOUISE drain in place MUSCULOSKELETAL: No joint swelling or deformity. EXTREMITIES: No cyanosis, clubbing, or pedal edema. NEUROLOGICAL: Gross neurological examination did not reveal any focal deficits. SKIN: No rashes. no petechiae. - Labs CBC & Chem 7: 12/08/24 04:30 12/08/24 04:30 Labs: Abnormal Lab Results - Last 24 Hours (Table) 12/07/24 12/07/24 12/07/24 Range/Units 17:08 19:52 22:29 RBC (4.40-5.60) X 10*6/uL Hgb (13.0-17.0) g/dL Hct (39.6-50.0) % Immature Gran # (0.00-0.04) X 10*3/uL Eosinophils # (0.04-0.35) X 10*3/uL Glucose (70-110) mg/dL POC Glucose (mg/dL) 172 H 177 H 181 H (70-110) mg/dL Calcium (8.7-10.3) mg/dL AST (14-35) U/L ALT (10-49) U/L Alkaline Phosphatase (41-126) U/L Total Protein (6.2-8.2) g/dL Albumin (3.8-4.9) g/dL 12/08/24 12/08/24 12/08/24 Range/Units 04:30 04:30 06:18 RBC 4.06 L (4.40-5.60) X 10*6/uL Hgb 12.5 L (13.0-17.0) g/dL Hct 37.0 L (39.6-50.0) % Immature Gran # 0.08 H (0.00-0.04) X 10*3/uL Eosinophils # 0.47 H (0.04-0.35) X 10*3/uL Glucose 138 H (70-110) mg/dL POC Glucose (mg/dL) 150 H (70-110) mg/dL Calcium 7.8 L (8.7-10.3) mg/dL AST 47 H (14-35) U/L ALT 100 H (10-49) U/L Alkaline Phosphatase 420 H (41-126) U/L Total Protein 4.9 L (6.2-8.2) g/dL Albumin 3.1 L (3.8-4.9) g/dL Assessment and Plan Assessment: Acute gangrenous cholecystitis with perforated gallbladder status post laparoscopic cholecystectomy Abdominal pain Acute transaminitis Hypertension History of hyperlipidemia History of diabetes mellitus Plan: Monitor vital signs Monitor CBC Monitor CMP status post robotic cholecystectomy with LOUISE drain placed Continue pain management Continue IV antibiotics per surgery patient is on Unasyn Continue clear liquid diet, advance as tolerated Hold statin Ordered blood glucose monitoring, start sliding scale insulin Resume amlodipine, hold olmesartan for now Resume home med General Surgery following Labs and medication were reviewed.. Continue same treatment. Monitor labs and vitals. DVT and GI prophylaxis. Further recommendations as per clinical course of the patient patient is medically stable Patient was instructed to follow-up with PCP in 1 week after discharge and he agrees
== END 2024-12-08 10:40 | disposition home or self-care (01) | DRG 418 ==
LOC: EC 03:54 → 4SSUR 07:05 → 6NMEDSUR 13:22
PROVIDERS: ADMIT Surgery; ATTEND Surgery
PROC: 0FT44ZZ Resection of Gallbladder, Percutaneous Endoscopic Approach (ICD-10-PCS; principal; 2024-12-04 09:00)
PROC: 8E0W4CZ Robotic Assisted Procedure of Trunk Region, Percutaneous Endoscopic Approach (ICD-10-PCS; principal; 2024-12-04 09:00)
DX: K81.0 Acute cholecystitis (principal); K82.A2 Perforation of gallbladder in cholecystitis; K82.A1 Gangrene of gallbladder in cholecystitis; E11.9 Type 2 diabetes mellitus without complications; I10 Essential (primary) hypertension; E78.5 Hyperlipidemia, unspecified; K21.9 Gastro-esophageal reflux disease without esophagitis; Z79.82 Long term (current) use of aspirin; Z79.84 Long term (current) use of oral hypoglycemic drugs; Z79.899 Other long term (current) drug therapy; Z96.641 Presence of right artificial hip joint; Z88.8 Allergy status to other drugs, medicaments and biological substances
CPT/HCPCS: 36415; 74176; 80048; 80053; 80076; 81003; 82150; 83036; 83690; 85025; 87040; 88304; 96361; 96365; 96375; 99285

== ENCOUNTER → 2024-12-16 | Outpatient (CLI) | payer MEDICARE ==
--- NOTE | 2024-12-16 08:47 | NM ---
EXAMINATION TYPE: NM hepatobiliary wo EF DATE OF EXAM: 12/16/2024 8:07 AM COMPARISON: 12/03/2024 CLINICAL INDICATION:Male, 69 years old with history of K91.89 disorder of digestive system; TECHNIQUE: The patient was given 4.52 mCi of Technetium 99m-Mebrofenin as a radiotracer and multiple scintigraphic images were obtained of the abdomen. FINDINGS: Normal uptake of radiotracer was identified within the liver with excretion into the hepatic and comm on biliary ducts within 8 min. There was normal progressive washout of the liver over the course of t he study. The gallbladder surgically absent. Barry-Samaniego drain is in place. Radiotracer uptake with in the small bowel activity was identified at 20 minutes. Radiotracer is seen exiting through patient's Barry-Samaniego drain in the right abdomen. Findings comp atible with biliary leak. IMPRESSION: Findings compatible with biliary leak and exiting through the patient's Barry-Samaniego drain. Findings communicated to Jono Rose DO on 12/16/2024 8:[address] Ulices Garnica. [facility], , 12/16/2024 8:45 AM
== END | disposition home or self-care (01) ==
LOC: RADNMMAIN 06:30
PROVIDERS: ATTEND Surgery
DX: K91.89 Other postprocedural complications and disorders of digestive system (principal)
CPT/HCPCS: 78226; A9537

== ENCOUNTER 2024-12-22 08:00 | Day surgery (SDC) | payer MEDICARE ==
[2024-12-20 14:28] VITALS: BMI 28.5
[2024-12-22] MEDS: IV FLUID CONTINUATION 1,000 ML IV ONE (08:37)
[2024-12-22 08:46] VITALS: TEMP 97.5
[2024-12-22] MEDS: LACTATED RINGERS 1,000 ML IV SCH (08:48)
[2024-12-22] MEDS ORDERED: INDOMETHACIN 100 MG SUPPOSITORY RECTAL ONE (09:00)
[2024-12-22] MEDS: LEVOFLOXACIN 500MG-D5W PMX 500 MG in DEXTROSE/WATER 1 100ML.BAG IVPB ONE (09:01)
[2024-12-22 09:03] LABS: Glucose,Whole Blood 124 mg/dL (70-110)
[2024-12-22] MEDS: INDOMETHACIN 100 MG SUPPOSITORY RECTAL ONE (09:04)
[2024-12-22 09:41] LABS: HCT 43.1 % (39.6-50.0); HGB 14.7 g/dL (13.0-17.0); MCH 30.9 pg (27.0-32.0); MCHC 34.1 g/dL (32.0-37.0); MCV 90.5 fL (80.0-97.0); Platelet Count 299 10*3/uL (140-440); RBC 4.76 10*6/uL (4.40-5.60); RDW 13.1 % (11.5-14.5); WBC 7.58 10*3/uL (4.50-10.00)
[2024-12-22] MEDS ORDERED: MIDAZOLAM 2 MG/2 ML VIAL ONE (09:49)
[2024-12-22] MEDS ORDERED: LIDOCAINE 1% INJ 10MG/ML (20 ML MDV) ONE (09:49)
[2024-12-22] MEDS ORDERED: KETAMINE HCL IN 0.9 % NACL 50 MG/5 ML SYRINGE ONE (09:49)
[2024-12-22] MEDS ORDERED: PROPOFOL 10 MG/ML 20 ML VIAL IV ONE (09:49)
[2024-12-22] MEDS ORDERED: fentaNYL (PF) 50 MCG/ML 2 ML AMP ONE (09:49)
[2024-12-22 09:53] LABS: INR 1.1 (<1.2); Prothrombin Time 12.3 sec (10.0-12.5)
[2024-12-22 09:55] LABS: ALT 41 U/L (4-49); African American GFR (CKD) 81 (>60 ml/min/1.73 sqM); Albumin 4.3 g/dL (3.5-5.0); Anion Gap 9 mmol/L; Blood Urea Nitrogen 27 mg/dL (9-20); Calcium 9.5 mg/dL (8.4-10.2); Carbon Dioxide 28 mmol/L (22-30); Chloride 101 mmol/L (98-107); Glucose 129 mg/dL (74-99); Non-African American GFR(CKD) 70 (>60 ml/min/1.73 sqM); Sodium 138 mmol/L (137-145); Total Protein 6.9 g/dL (6.3-8.2)
[2024-12-22] MEDS: IOPAMIDOL-300 30ML BTL MISCELLANE ONE (10:00)
[2024-12-22 10:13] LABS: AST 36 U/L (17-59); Alkaline Phosphatase 178 U/L (38-126); Potassium 5.5 mmol/L (3.5-5.1)
--- NOTE | 2024-12-22 10:26 | P.PCN ---
Date of Procedure: 12/22/24 Procedure(s) Performed: Brief history: Patient is a 69-year-old white male eduled for an ERCP for post laparoscopic cholecystectomy bile leak.. Patient was admitted to hospital 3 weeks ago with severe abdominal pain and acute cholecystitis. He underwent laparoscopic cholecystectomy on December 04 with a LOUISE drain for acute gangrenous cholecystitis. Subsequently he had some bile leak. HIDA scan confirmed bile leak. He is not scheduled for an ERCP for CBD stent placement Procedure performed: ERCP with 7 Irish, 5 cm plastic CBD stent placement Preoperative diagnoses: Post laparoscopic cholecystectomy bile leak IV sedation per anesthesia: Procedure: After informed consent was obtained from the patient and after the risks benefits and complications including bleeding perforation and pancreatitis explained in detail the patient was brought into the endoscopy unit. The patient was placed in prone position and IV conscious sedation was administered by anesthesia under continuous monitoring. The Olympus side-viewing duodenoscope was then inserted into the mouth and esophagus intubated without a ny difficulty. The scope was gradually advanced into the stomach and duodenum. The major papilla was identified without any difficulty. Initial cannulation resulted and appeared to be in the pancreatic duct that appeared normal. Subsequent cannulation resulted in opacification of the common bile duct which appeared normal with no dilation. Following the injection of the dye there was some mild leak noted at the cystic duct stump. There was no biliary ductal dilation noted. No filling defect seen. At this time the catheter was exchanged over a guidewire following which a 7 Irish, 5 cm plastic stent were placed into the common bile duct without any difficulty with good drainage of bile. Patient tolerated the procedure well. Impression: Normal pancreatic duct Normal-appearing bile duct with bile leak noted at the cystic duct stump status post 7 Irish, 5 cm plastic CBD stent placement as described above Recommendations: The findings of this examination were discussed with the patient as well as a family. Follow-up with Dr. Rose. Recommend repeat EGD with CBD stent removal in 6 weeks.
[2024-12-22 10:41] VITALS: RESP 12
[2024-12-22 10:59] VITALS: BP 107/62; PULSE 63
--- NOTE | 2024-12-22 11:29 | FL ---
Fluoroscopy INDICATION: Pain FINDINGS: Fluoroscopy time: 1 minute 39 seconds Total dose area product (DAP) in uGy*m?, mGy*cm? (or similar): 8.8704 Images obtained: 16. Images document ERCP pancreatic duct and common bile duct. IMPRESSION: 1. Documentation of fluoroscopy. [facility], Workstation: [id number], 12/22/2024 11:26 AM
== END 2024-12-22 11:25 | disposition home or self-care (01) ==
LOC: ORWHC2ENDO 08:00
PROVIDERS: ATTEND Internal Medicine Gastroenterology
DX: K91.89 Other postprocedural complications and disorders of digestive system (principal); E11.9 Type 2 diabetes mellitus without complications; I10 Essential (primary) hypertension; E78.5 Hyperlipidemia, unspecified; K21.9 Gastro-esophageal reflux disease without esophagitis; M19.90 Unspecified osteoarthritis, unspecified site; Y83.8 Other surgical procedures as the cause of abnormal reaction of the patient, or of later complication, without mention of misadventure at the time of the procedure; Z79.899 Other long term (current) drug therapy; Z79.82 Long term (current) use of aspirin; Z79.84 Long term (current) use of oral hypoglycemic drugs; Z96.649 Presence of unspecified artificial hip joint
CPT/HCPCS: 80053; 85027; 85610; 74330; 43274; J2250; J1956; J2003; J3010; J2704; Q9967; C2625